=== PATIENT | male | born 1935 | race Caucasian/White ===

== ENCOUNTER 2018-11-06 13:43 | Observation (INO) ==
[2018-11-06] MEDS ORDERED: ASPIRIN CHEW 324 MG PO STA (14:12)
[2018-11-06 14:41] LABS: HCO3 VBG 26 mmol/L; Oxygen Saturation VBG < 60.0 %; PCO2 VBG 45 mmHg (38-50); PO2 VBG 23 mmHg; pH VBG 7.39 (7.36-7.41)
[2018-11-06 14:42] LABS: Basophils # (auto) 0.07 K/uL (0-0.2); Basophils % (auto) 0.7 %; Eosinophils # (auto) 0.06 K/uL (0-0.5); Eosinophils % (auto) 0.6 %; Hematocrit (blood only) 41.2 % (42-52); Hemoglobin 14.1 g/dL (14.0-18.0); Immature Granulocytes # (auto) 0.01 K/uL (0.00-0.02); Immature Granulocytes % (auto) 0.1 %; Lymphocytes # (auto) 1.47 K/uL (1.2-3.4); Lymphocytes % (auto) 15.5 %; Mean Corpuscular Hgb Conc 34.2 g/dL (32-36); Mean Corpuscular Volume 90.4 fL (80-100); Monocytes # (auto) 0.65 K/uL (0.11-0.59); Monocytes % (auto) 6.9 %; Neutrophils # (auto) 7.21 K/uL (1.4-6.5); Neutrophils % (auto) 76.2 %; Platelet Count 150 K/uL (130-400); RDW Coefficient of Variation 14.1 % (11.5-14.5); RDW Standard Deviation 46.2 fL (36.4-46.3); Red Blood Count 4.56 M/uL (4.7-6.1); White Blood Count 9.47 K/uL (4.8-10.8)
[2018-11-06] MEDS: SODIUM CHLORIDE 0.9% 500 ML IV SCH ×2 (14:51→18:24)
[2018-11-06] MEDS ORDERED: DIPHTHERIA/TETANUS/PERTUSSIS 0.5 ML SYR/VIAL IM ONE (14:53)
--- NOTE | 2018-11-06 14:53 | XRay Report ---
XR shoulder RT min 2V routine CLINICAL HISTORY: fall pain COMPARISON: None. DISCUSSION: Moderate degenerative change glenohumeral and acromioclavicular joints. No acute process. There is no evidence for soft tissue swelling. IMPRESSION: Moderate degenerative change. No acute process. The above report was generated using voice recognition software. It may contain grammatical, syntax or spelling errors. Electronically signed by: Ryan De Santiago M.D. 11/06/2018 2:52 PM
--- NOTE | 2018-11-06 14:53 | XRay Report ---
XR chest 1V portable CLINICAL HISTORY: Chest Pain pain COMPARISON STUDY: 08/28/2018 FINDINGS: The bones soft tissues and hemidiaphragms are normal. The cardiomediastinal silhouette is n ormal. The lungs are clear. The pulmonary vasculature is normal. IMPRESSION: Negative chest. The above report was generated using voice recognition software. It may contain grammatical, syntax or spelling errors. Electronically signed by: Ryan De Santiago M.D. 11/06/2018 2:51 PM
--- NOTE | 2018-11-06 14:55 | XRay Report ---
XR elbow RT min 3V routine CLINICAL HISTORY: fall COMPARISON: None. DISCUSSION: The bones and joint spaces appear intact. There is no evidence of fracture, dislocation o r bony disease. Mild degenerative change. No acute posttraumatic abnormality. IMPRESSION: Mild degenerative change. No acute process. The above report was generated using voice recognition software. It may contain grammatical, syntax or spelling errors. Electronically signed by: Ryan De Santiago M.D. 11/06/2018 2:54 PM
[2018-11-06 14:58] LABS: Partial Thromboplastin Ratio 0.9; Partial Thromboplastin Time 23.6 Seconds (21.0-31.0); Prothrombin Time 10.6 Seconds (9.0-12.0)
[2018-11-06 15:00] LABS: BUN Creatinine Ratio 25.3 (10-20); Calcium 9.8 mg/dl (8.5-10.1); Creatinine Clr Calc Pharmacy 35.5 ml/min; Est GFR (African American) 83.5; Potassium 4.3 mmol/L (3.5-5.1)
[2018-11-06 15:14] LABS: Troponin I 0.111 ng/ml (0-0.045)
[2018-11-06] MEDS ORDERED: OPTIRAY 320 125ml IV PRN (15:50)
--- NOTE | 2018-11-06 15:54 | CT Scan Report ---
CT head/brain wo con CT DOSE: 537.48 mGy.cm HISTORY: Mental status change syncope TECHNIQUE: Multiaxial CT images of the head were performed without the use of intravenous contrast. A dose lowering technique was utilized adhering to the principles of ALARA. Comparison: 03/30/2007. PET scan Findings: The paranasal sinuses and mastoid air cells are clear. The right globe is calcified. Modera te frontal atrophy. Components of chronic small vessel change throughout. 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 No acute intracranial hemorrhage. Impression: Chronic and age-related change. 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 No acute process. The above report was generated using voice recognition software. It may contain grammatical, syntax or spelling errors. Electronically signed by: Ryan De Santiago M.D. 11/06/2018 3:53 PM
--- NOTE | 2018-11-06 15:58 | CT Scan Report ---
CT angio chest PE protocol CT DOSE: 212.15 mGy.cm HISTORY: Chest pain Chest Pain, eval for PE TECHNIQUE: Multiaxial CT images of the chest were performed following the intravenous administration of contrast to evaluate the pulmonary arteries. Maximal intensity projection images were also obtaine d. A dose lowering technique was utilized adhering to the principles of ALARA. COMPARISON STUDY: 03/06/2018 FINDINGS: There is a normal caliber thoracic aorta with no evidence for dissection. There is no evide nce for pulmonary embolus. No pleural effusions. No pneumothorax. The liver and spleen are unremarkab le. No mediastinal or hilar lymphadenopathy. The central airways are patent. The lungs are clear. Emp hysematous changes noted throughout. Atherosclerotic change thoracic aorta. IMPRESSION: 1. No evidence for pulmonary embolus. 2. Emphysematous change. 3. The lungs are clear. The above report was generated using voice recognition software. It may contain grammatical, syntax or spelling errors. Electronically signed by: Ryan De Santiago M.D. 11/06/2018 3:57 PM
--- NOTE | 2018-11-06 17:42 | History & Physical Report ---
Date of Service November 06, 2018 Assessment & Plan (1) Syncope: This is a 83-year-old male with a PMH of CAD (s/p stents), carotid stenosis (s/p L endarterectomy, R carotid stenting), PVD (s/p L fem-pop bypass), laryngeal cancer (s/p resection and XRT), continued tobacco use, HTN and HLD who presents after syncopal episode this afternoon. -Likely postural hypotension in setting of dehydration -Also considering cardiac/vascular etiology, considering patient's longstanding CAD, carotid stenosis, tobacco use -IV fluids, orthostatic vitals, 2D echo -Fall precautions (2) Elevated troponin: Troponin elevation of 0.111 -H/o complex CAD including previous CABG and stents -No chest pain or EKG changes today (chronic LBBB already noted in Jul 2018) -Troponin elevation noted during Jul 2018 admission, during which patient left AMA -Saw Dr. Crain in Aug 2018, stated that he was not interest in further intervention, such as stress test or cardiac cath -ED physician discussed with Dr. Lopez. No need to start IV heparin at this time. 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 Crain, who recommended against elective procedure given the high likelihood of perioperative mortality DVT Ppx: SQ heparin Code status: DNR per discussion with patient PCP: Britt Andrews Dispo: Observation med tele. Plan to return home once medically stable. Patient seen in collaboration with Dr. Perez. Please see addendum. History of Present Illness Chief Complaint: Syncopal episode Primary Care Provider: Lissett Andrews This is a 83-year-old male with a PMH of CAD (s/p stents), carotid stenosis (s/p L endarterectomy, R carotid stenting), PVD (s/p L fem-pop bypass), laryngeal cancer (s/p resection and XRT), continued tobacco use, HTN and HLD who presents after syncopal episode this afternoon. Patient was returning from overnight drive from [place] with family when he stopped at a gas station and was walking beside car when he had a syncopal event. Patient denies any preceding lightheadedness, dizziness, chest pain or shortness of breath but just "fell to the ground "and was helped up by and daughter. Endorses bumping the back of his head. States that this happened to him once before, 4 years ago. Patient had been drinking primarily coffee and not much water overnight. Also endorses chain-smoking 5 cigarettes prior to syncopal event. Has tenderness in the right shoulder and forearm. Denies any fever, chills, lightheadedness, conf usion, chest pain, palpitations, shortness of breath, nausea, vomiting, abdominal pain, dysuria, diarrhea, or constipation. Patient has complex cardiac and vascular history and was not following with cardiology service between 2011 and August of this year. Was seen by Dr. Crain in clinic in August 2018 after being admitted at [facility] for chest pain and leaving AMA. Discussed further workup with stress test and possible cardiac catheterization but patient is not interested in any further testing. Was started on Imdur, which patient states he has been compliant with. Patient has troponin elevation of 0.111 as well as EKG with LAD, LBBB (previously noted on Jul 2018 EKG). Head CT, CXR and CTA chest without acute findings. Allergies Allergy/AdvReac Type Severity Reaction Status Date / Time Sulfa (Sulfonamide Allergy Unknown HIVES Verified 08/28/18 10:28 Antibiotics) codeine AdvReac Mild MENTAL Verified 08/28/18 10:28 STATUS CHANGE morphine AdvReac Unknown CHANGE IN Verified 08/28/18 10:28 MENTAL STATUS Home Medications Home Medications Medication Instructions Recorded Confirmed Type amitriptyline 25 mg PO HS 11/06/18 11/06/18 History aspirin 81 mg PO DAILY 11/06/18 11/06/18 History isosorbide mononitrate 30 mg PO HS 11/06/18 11/06/18 History lisinopril 5 mg PO HS 11/06/18 11/06/18 History nitroglycerin [Nitrostat] 0.4 mg SUBLINGUAL UD 11/06/18 11/06/18 History simvastatin 40 mg PO HS 11/06/18 11/06/18 History Past Med/Surg History Medical History History of CVA (cerebrovascular accident) (Chronic) mild residual hemiplegia and hemiparesis, left Carotid stenosis (Chronic) s/p L endarterectomy, R stenting "years ago" History of laryngeal cancer (Resolved) s/p resection and radiation History of prostate cancer (Resolved) Peripheral vascular disease (Chronic) Tobacco use (Chronic) Insomnia (Chronic) HTN (hypertension) (Chronic) Carotid stenosis (Chronic) Pulmonary emphysema (Chronic) Hypothyroidism (Chronic) Surgical History Status post femoral-popliteal bypass surgery (Resolved) left Hx of CABG (Chronic) 1993, 2002 Hx of heart artery stent (Chronic) Social History Preferred Language: Hebrew Communication Ability: Effective Housekeeping Associate Required: No Beliefs That Will Affect Care: None Current Living Situation: Spouse Other Information That Helps Us Care for You: No Feels Safe at Home: Yes Safety Concerns: Feels Safe At This Time Smoking Status: Current every day smoker Hx Alcohol Use: No Hx Substance Use: No Review of Systems All systems reviewed & are unremarkable except as noted in HPI & below Physical Exam Vital Signs (Past 24 Hours): Last Vital Signs Temp 36.4 C L 11/06/18 13:51 Pulse 96 H 11/06/18 16:29 Resp 20 11/06/18 16:29 BP 163/92 H 11/06/18 16:29 Pulse Ox 97 11/06/18 15:06 Physical Exam: General Appearance: WD/WN, no apparent distress, thin, chronically ill appearing Head: normocephalic, atraumatic Eyes: normal inspection, R eye artificial, PERRL, EOMI ENT: hearing grossly normal, pharynx normal (dry mucous membranes) Neck: supple, no JVD, no adenopathy Respiratory/Chest: lungs clear to auscultation. No wheezes, rales or rhonci. No respiratory distress or accessory muscle use Cardiovascular: regular rate, rhythm, systolic murmur, normal peripheral pulses Abdomen/GI: normal bowel sounds, soft, non-tender to palpation Extremities/Musculoskelatal: normal inspection, no calf tenderness, normal capillary refill, no pedal edema Neurologic/Psych: alert, normal mood/affect, oriented x 3 Skin: normal color, warm/dry Results & Data Laboratory Results Short CBC 11/06/18 Range/Units 14:16 WBC 9.47 (4.8-10.8) K/uL Hgb 14.1 (14.0-18.0) g/dL Hct 41.2 L (42-52) % Plt Count 150 (130-400) K/uL BMP 11/06/18 14:16 Sodium 136 Potassium 4.3 Chloride 102 Carbon Dioxide 26 BUN 25 H Creatinine 0.98 Glucose 113 H Calcium 9.8 Cardiac Enzymes 11/06/18 Range/Units 14:16 Troponin I 0.111 H* (0-0.045) ng/ml Diagnostic Findings CT head: Impression: Chronic and age-related change. 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 No acute process. Elbow XR: IMPRESSION: Mild degenerative change. No acute process. Shoulder XR: IMPRESSION: Moderate degenerative change. No acute process. CXR: IMPRESSION: Negative chest. Chest CTA: IMPRESSION: 1. No evidence for pulmonary embolus. 2. Emphysematous change. 3. The lungs are clear. Supervising Physician Co-Signing Physician Notes The patient was seen and examined in ER This is a 83-year-old male with a PMH of CAD (s/p stents), carotid stenosis (s/p L endarterectomy, R carotid stenting), PVD (s/p L fem-pop bypass), laryngeal cancer (s/p resection and XRT), continued tobacco use, HTN and HLD who presents after syncopal episode this afternoon following overnight drive from [place] to [employer] when he tried to come out of his car in a gas station,he felt dizzy and collapsed. Denies any symptoms in the emergency room On examination No apparent distress at rest Hemodynamically stable Chest-decreased breath sounds both sites with minimal wheezing Heart-S1-S2 regular with a 2/6 ejection systolic murmur over precordium Abdomen-benign Extremities-no edema and peripheral pulses well palpable EMBEDDED SOFTWARE PROGRAMMER-alert, awake and oriented x3. No focal sensory and motor deficit appreciated Admission labs, EKG and imaging studies reviewed Troponin mildly elevated to rule out ACS Likely has postural hypotension/cardiac dysrhythmias Agree with assessment and plan as outlined above by Jessica Perez (1) Syncope Syncope type: unspecified Qualified Code(s): R55 - Syncope and collapse
[2018-11-06] MEDS ORDERED: POLYETHYLENE (MIRALAX) 17 GM PACK PO PRN (18:22)
[2018-11-06] MEDS ORDERED: NITROGLYCERIN SL 0.4 MG/TAB TAB SL PRN (18:22)
[2018-11-06] MEDS ORDERED: ACETAMINOPHEN 325 MG TAB PO PRN (18:22)
--- NOTE | 2018-11-06 18:49 | Emergency Department Note ---
Entered by Emiliano Nam acting as a scribe for Jose Jain History of Present Illness General Chief complaint: Syncope Stated complaint: PASSED OUT TWICE Time Seen by Provider: 11/06/18 14:03 Source: patient Mode of arrival: ambulatory History of Present Illness Provider complaint: Syncope Onset (ago): hour(s) 2 Location: head Radiation: back Maximum Pain Intensity: 9 Current Pain Intensity: 9 Associated symptoms: no shortness of breath Patient is an 83 year old male who presents himself to ER with complains of passing out today at 1pm. He was on his way from [place] and stopped in nearby [place] for a cigarette break. Upon smoking his cigarette he started feeling dizzy and passed out. Patient also notes his pain at a rating of 9 on the pain intensity scale and the pain radiates slightly to his back. He states he does have a history of a cardiac stent and CABG. He states denying blood in urine, stool, abdominal pain, kidney problems, and shortness of breath. He also notes being on no blood thinners. Home Medications Home Medications Medication Instructions Recorded Confirmed Type amitriptyline 25 mg PO HS 11/06/18 11/06/18 History aspirin 81 mg PO DAILY 11/06/18 11/06/18 History isosorbide mononitrate 30 mg PO HS 11/06/18 11/06/18 History lisinopril 5 mg PO HS 11/06/18 11/06/18 History nitroglycerin [Nitrostat] 0.4 mg SUBLINGUAL UD 11/06/18 11/06/18 History simvastatin 40 mg PO HS 11/06/18 11/06/18 History Allergies Allergy/AdvReac Type Severity Reaction Status Date / Time Sulfa (Sulfonamide Allergy Unknown HIVES Verified 08/28/18 10:28 Antibiotics) codeine AdvReac Mild MENTAL Verified 08/28/18 10:28 STATUS CHANGE morphine AdvReac Unknown CHANGE IN Verified 08/28/18 10:28 MENTAL STATUS Past Med/Surg History Surgical History Hx of CABG (Acute) Hx of heart artery stent Social History Preferred Language: Tam[place] Communication Ability: Effective Clinical Informatics Specialist Required: No Beliefs That Will Affect Care: None Current Living Situation: Spouse Other Information That Helps Us Care for You: No Feels Safe at Home: Yes Safety Concerns: Feels Safe At This Time Smoking Status: Current every day smoker Hx Alcohol Use: No Hx Substance Use: No Review of Systems See HPI for pertinent positives & negatives. and A total of 10 systems reviewed and were otherwise negative Physical Exam Vital Signs Vital Signs - 24 hr 11/06/18 13:51 11/06/18 14:41 11/06/18 15:06 Temperature 36.4 C L Temperature Source Oral Sepsis Recent Fever Within 48 Hours No Sepsis New/Unexplained Change in Mental Status No Sepsis Action Taken by Nursing No Action Required Pulse Rate 108 H 108 H Pulse Rate [Apical] 94 H Pulse Rate [Left Finger] Pulse Rhythm [Apical] Pulse Strength [Apical] Respiratory Rate 22 20 20 Respiratory Effort / Characteristics Non-Labored Respiratory Depth Normal Respiratory Pattern Blood Pressure 177/94 H Blood Pressure [Left Arm] 156/129 H Blood Pressure Mean 121 Blood Pressure Mean [Left Arm] 138 Blood Pressure Position [Left Arm] Pulse Oximetry 97 97 Pulse Oximetry [Left Index Finger] Oxygen Delivery Method Room Air Room Air Oxygen Delivery Method [Left Index Finger] 11/06/18 16:29 11/06/18 17:42 11/06/18 18:00 Temperature Temperature Source Sepsis Recent Fever Within 48 Hours Sepsis New/Unexplained Change in Mental Status Sepsis Action Taken by Nursing Pulse Rate Pulse Rate [Apical] 96 H 84 Pulse Rate [Left Finger] Pulse Rhythm [Apical] Regular Regular Pulse Strength [Apical] Normal Respiratory Rate 20 20 Respiratory Effort / Characteristics Non-Labored Spontaneous Non-Labored Spontaneous Non-Labored Spontaneous Respiratory Depth Normal Normal Normal Respiratory Pattern Regular Regular Blood Pressure Blood Pressure [Left Arm] 163/92 H 151/82 H Blood Pressure Mean Blood Pressure Mean [Left Arm] 115 105 Blood Pressure Position [Left Arm] Lying Pulse Oximetry 98 Pulse Oximetry [Left Index Finger] Oxygen Delivery Method Room Air Room Air Oxygen Delivery Method [Left Index Finger] 11/06/18 18:14 11/06/18 18:42 11/06/18 18:43 Temperature 36.4 C L Temperature Source Oral Sepsis Recent Fever Within 48 Hours Sepsis New/Unexplained Change in Mental Status Sepsis Action Taken by Nursing Pulse Rate 84 Pulse Rate [Apical] Pulse Rate [Left Finger] 69 Pulse Rhythm [Apical] Pulse Strength [Apical] Respiratory Rate 20 18 Respiratory Effort / Characteristics Non-Labored Spontaneous Respiratory Depth Normal Respiratory Pattern Regular Blood Pressure 151/82 H Blood Pressure [Left Arm] 162/98 H Blood Pressure Mean Blood Pressure Mean [Left Arm] 119 Blood Pressure Position [Left Arm] Sitting Pulse Oximetry 98 93 Pulse Oximetry [Left Index Finger] 93 Oxygen Delivery Method Room Air Room Air Oxygen Delivery Method [Left Index Finger] Room Air GENERAL: He is oriented to person, place, and time. He does not appear distressed. Appears Cachectic. HENT: Exam performed. - Head: Normocephalic and atraumatic. - Right Ear: External ear normal. No mastoid tenderness. - Left Ear: External ear normal. No mastoid tenderness. - Mouth/Throat: The oropharynx is clear and moist. No trismus in the jaw. No dental abscesses or uvula swelling. No oropharyngeal exudate or tonsillar abscesses. EYES: Conjunctivae and EOM are normal. Pupils are equal, round, and reactive to light. Right eye is false eye, with discharge. Left eye exhibits no discharge. No scleral icterus. NECK: Normal range of motion. Neck supple. No JVD present. No spinous process tenderness present. No carotid bruit present. No rigidity. No tracheal deviation and normal range of motion present. No Brudzinski's sign and no Kernig's sign noted. CV: Normal rate, regular rhythm, normal heart sounds and intact distal pulses. There is no peripheral edema. Palpable radial pulses bue. PULM/CHEST: Effort normal and breath sounds normal. No respiratory distress. No stridor. He has no wheezes. He has no rales. - Chest Wall: He exhibits no tenderness. ABD: The abdomen is soft. Bowel sounds are normal. He has no distension. No mass is present. There is no tenderness. There is no rebound, no guarding, no Macias's sign and no tenderness at McBurney's point. Rovsig negative. MUSC/SKEL: Pain with active ROM of right shoulder and elbow. There is no peripheral edema, tenderness or deformity. LYMPH: No cervical adenopathy. NEURO: He is alert and oriented to person, place, and time. He has normal strength. No cranial nerve deficit or sensory deficit. Coordination and gait normal. GCS eye subscore is 4. GCS verbal subscore is 5. GCS motor subscore is 6. Cerebellar tests wnl. SKIN: Skin is warm and dry. He is not diaphoretic. Skin abrasion over right elbow. PSYCH: He has a normal mood and affect. Behavior is normal. Judgment and thought content normal. Course 1405: Past medical records reviewed. The patient was evaluated in room A04B, and a complete history and physical examination were performed. 1605: The patient's imaging results are within normal limits. I noted his labs showing elevated troponin levels and that his kidney function was normal. I spoke with , Cardiology and he states that no heparin at this time, he recommends trending the troponin. 1617: The patient will be admitted under the care of Dr. Perez, Hospitalist, [place] upon discussion with [place] Sheehan PA-C. Administered Medications Discontinued Medications Aspirin (Aspirin) 324 mg PO NOW STA Stop: 11/06/18 14:13 Last Admin: 11/06/18 14:55 Dose: 324 mg Documented by: [id number] Diphtheria/Pertussis/Tetanus Vacc (Adacel) 0.5 ml IM .ONCE ONE Stop: 11/06/18 14:54 Last Admin: 11/06/18 15:22 Dose: 0.5 ml Documented by: [id number] Sodium Chloride (Nss) 500 mls @ 125 mls/hr IV .Q4H VIC Stop: 12/06/18 14:14 Last Admin: 11/06/18 18:24 Dose: Not Given Documented by: [id number] Infusion: 11/06/18 18:17 Dose: 0 mls/hr Documented by: [id number] Admin: 11/06/18 14:51 Dose: 125 mls/hr Documented by: [id number] Ioversol (Optiray 320 125ml) 98 ml IV ONCE PRN PRN Reason: Interaction Checking Stop: 11/10/18 15:49 Last Admin: 11/06/18 15:50 Dose: 98 ml Documented by: [id number] Medical Decision Making Medical Records Attestation: I reviewed the patient's medical records. Home Medications Current Medication List: was personally reviewed by me Laboratory Data Attestation: I reviewed the patient's lab results. Result diagrams: 11/06/18 14:16 11/06/18 14:16 Lab Results 11/06/18 11/06/18 11/06/18 Range/Units 14:16 14:16 14:16 WBC 9.47 (4.8-10.8) K/uL RBC 4.56 L (4.7-6.1) M/uL Hgb 14.1 (14.0-18.0) g/dL Hct 41.2 L (42-52) % MCV 90.4 (80-100) fL MCH 30.9 (25-34) pg MCHC 34.2 (32-36) g/dL RDW Std Deviation 46.2 (36.4-46.3) fL RDW Coeff of Palu 14.1 (11.5-14.5) % Plt Count 150 (130-400) K/uL MPV 11.0 H (7.4-10.4) fL Immature Gran % (Auto) 0.1 % Neut % (Auto) 76.2 % Lymph % (Auto) 15.5 % Kendall % (Auto) 6.9 % Eos % (Auto) 0.6 % Baso % (Auto) 0.7 % Immature Gran # (Auto) 0.01 (0.00-0.02) K/uL Neut # (Auto) 7.21 H (1.4-6.5) K/uL Lymph # (Auto) 1.47 (1.2-3.4) K/uL Kendall # (Auto) 0.65 H (0.11-0.59) K/uL Eos # (Auto) 0.06 (0-0.5) K/uL Baso # (Auto) 0.07 (0-0.2) K/uL PT 10.6 (9.0-12.0) Seconds INR 1.0 (0.9-1.1) APTT 23.6 (21.0-31.0) Seconds PTT Ratio 0.9 VBG pH (7.36-7.41) VBG pCO2 (38-50) mmHg VBG pO2 mmHg VBG HCO3 mmol/L VBG O2 Saturation % VBG Base Excess mEq/L Barometric Pressure mm/Hg Sodium 136 (136-145) mmol/L Potassium 4.3 (3.5-5.1) mmol/L Chloride 102 (98-107) mmol/L Carbon Dioxide 26 (21-32) mmol/L Anion Gap 8.0 (3-11) BUN 25 H (7-18) mg/dl Creatinine 0.98 (0.6-1.4) mg/dl Est Cr Clr Drug Dosing 35.5 ml/min Est GFR ( Amer) 83.5 Est GFR (Non-Af Amer) 72.0 BUN/Creatinine Ratio 25.3 H (10-20) Glucose 113 H (70-99) mg/dl Calcium 9.8 (8.5-10.1) mg/dl Troponin I 0.111 H* (0-0.045) ng/ml Lipase 171 (73-393) U/L 11/06/18 Range/Units 14:28 WBC (4.8-10.8) K/uL RBC (4.7-6.1) M/uL Hgb (14.0-18.0) g/dL Hct (42-52) % MCV (80-100) fL MCH (25-34) pg MCHC (32-36) g/dL RDW Std Deviation (36.4-46.3) fL RDW Coeff of Paul (11.5-14.5) % Plt Count (130-400) K/uL MPV (7.4-10.4) fL Immature Gran % (Auto) % Neut % (Auto) % Lymph % (Auto) % Kendall % (Auto) % Eos % (Auto) % Baso % (Auto) % Immature Gran # (Auto) (0.00-0.02) K/uL Neut # (Auto) (1.4-6.5) K/uL Lymph # (Auto) (1.2-3.4) K/uL Kendall # (Auto) (0.11-0.59) K/uL Eos # (Auto) (0-0.5) K/uL Baso # (Auto) (0-0.2) K/uL PT (9.0-12.0) Seconds INR (0.9-1.1) APTT (21.0-31.0) Seconds PTT Ratio VBG pH 7.39 (7.36-7.41) VBG pCO2 45 (38-50) mmHg VBG pO2 23 mmHg VBG HCO3 26 mmol/L VBG O2 Saturation < 60.0 % VBG Base Excess 1.0 mEq/L Barometric Pressure 727.0 mm/Hg Sodium (136-145) mmol/L Potassium (3.5-5.1) mmol/L Chloride (98-107) mmol/L Carbon Dioxide (21-32) mmol/L Anion Gap (3-11) BUN (7-18) mg/dl Creatinine (0.6-1.4) mg/dl Est Cr Clr Drug Dosing ml/min Est GFR ( Amer) Est GFR (Non-Af Amer) BUN/Creatinine Ratio (10-20) Glucose (70-99) mg/dl Calcium (8.5-10.1) mg/dl Troponin I (0-0.045) ng/ml Lipase (73-393) U/L Imaging Data Attestation: I personally reviewed and interpreted this imaging study as follows: Radiologist's Impression: Radiology results as stated below per my review and the radiologist's interpretation: XR shoulder RT min 2V routine CLINICAL HISTORY: fall pain COMPARISON: None. DISCUSSION: Moderate degenerative change glenohumeral and acromioclavicular tay ints. No acute process. There is no evidence for soft tissue swelling. IMPRESSION: Moderate degenerative change. No acute process. The above report was generated using voice recognition software. It may contain grammatical, syntax or spelling errors. Electronically signed by: Ryan De Santiago M.D. 11/06/2018 2:[address] head/brain wo con CT DOSE: 537.48 mGy.cm HISTORY: Mental status change syncope TECHNIQUE: Multiaxial CT images of the head were performed without the use of intravenous contrast. A dose lowering technique was utilized adhering to the principles of ALARA. Comparison: 03/30/2007. PET scan Findings: The paranasal sinuses and mastoid air cells are clear. The right globe is calcified. Moderate frontal atrophy. Components of chronic small vessel change throughout. 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 No acute intracranial hemorrhage. Impression: Chronic and age-related change. 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 No acute process. The above report was generated using voice recognition software. It may contain grammatical, syntax or spelling errors. Electronically signed by: Ryna De Santiago M.D. 11/06/2018 3:53 PM Dictated: 11/06/18 1550 Transcribed: 11/06/18 1550 XR elbow RT min 3V routine CLINICAL HISTORY: fall COMPARISON: None. DISCUSSION: The bones and joint spaces appear intact. There is no evidence of fracture, dislocation or bony disease. Mild degenerative change. No acute posttraumatic abnormality. IMPRESSION: Mild degenerative change. No acute process. The above report was generated using voice recognition software. It may contain grammatical, syntax or spelling errors. Electronically signed by: Ryan De Santiago M.D. 11/06/2018 2:[address] angio chest PE protocol CT DOSE: 212.15 mGy.cm HISTORY: Chest pain Chest Pain, eval for PE TECHNIQUE: Multiaxial CT images of the chest were performed following the intravenous administration of contrast to evaluate the pulmonary arteries. Maximal intensity projection images were also obtained. A dose lowering technique was utilized adhering to the principles of ALARA. COMPARISON STUDY: 03/06/2018 FINDINGS: There is a normal caliber thoracic aorta with no evidence for dissection. There is no evidence for pulmonary embolus. No pleural effusions. No pneumothorax. The liver and spleen are unremarkable. No mediastinal or hilar lymphadenopathy. The central airways are patent. The lungs are clear. Emphysem atous changes noted throughout. Atherosclerotic change thoracic aorta. IMPRESSION: 1. No evidence for pulmonary embolus. 2. Emphysematous change. 3. The lungs are clear. The above report was generated using voice recognition software. It may contain grammatical, syntax or spelling errors. Electronically signed by: Ryan De Santiago M.D. 11/06/2018 3:57 PM XR chest 1V portable CLINICAL HISTORY: Chest Pain pain COMPARISON STUDY: 08/28/2018 FINDINGS: The bones soft tissues and hemidiaphragms are normal. The cardiomediastinal silhouette is normal. The lungs are clear. The pulmonary vasculature is normal. IMPRESSION: Negative chest. The above report was generated using voice recognition software. It may contain grammatical, syntax or spelling errors. Electronically signed by: Ryan De Santiago M.D. 11/06/2018 2:51 PM ECG Data Attestation: I personally reviewed and interpreted this ECG as follows: Indication: syncope Rate (beats per minute): 92 Rhythm: normal sinus Findings: + other (Pr interval- 208 Qrs - 124 Qtc- 489 , Sgarbosa negative ) and + 1st degree AV block Blood Pressure Blood Pressure Findings: Elevated blood pressure Blood Pressure Disposition: Referred to patients primary care provider MENA Anderson 1405: Past medical records reviewed. The patient was evaluated in room A04B, and a complete history and physical examination were performed. 1605: The patient's imaging results are within normal limits. I noted his labs showing elevated troponin levels and that his kidney function was normal. I spoke with , Cardiology and he states that no heparin at this time, he recommends trending the troponin. 1617: The patient will be admitted under the care of Dr. Perez, Hospitalist, [place] upon discussion with Keya Sheehan PA-C. Impression & Plan Syncope, Elevated troponin Discharge Plan Visit Data Chief Complaint: Syncope Stated Complaint: PASSED OUT TWICE ED Provider: Jose Jain Discharge Problem: Syncope, Elevated troponin Patient Disposition: Admitted As Inpatient Discharge Instructions Interventions: ED Discharge Assessment Last Done: 11/06/18 18:14 Discharge Problem: Syncope Qualifiers: Syncope type: unspecified Qualified Code(s): R55 - Syncope and collapse The scribe's documentation has been prepared under my direction and personally reviewed by me in its entirety. I confirm that the note above accurately reflects all work, treatment, procedures, and medical decision making performed by me.
[2018-11-06] MEDS: SODIUM CHLORIDE 0.9% 1000ML 1,000 ML IV SCH (20:00)
[2018-11-06] MEDS ORDERED: AMITRIPTYLINE HCL 25 MG TAB PO SCH (21:00)
[2018-11-06] MEDS ORDERED: ISOSORBIDE MONO EXTENDED REL 30 MG TABCR PO SCH (21:00)
[2018-11-06] MEDS ORDERED: LISINOPRIL 5 MG TAB PO SCH (21:00)
[2018-11-06] MEDS ORDERED: SIMVASTATIN 40 MG TAB PO SCH (21:00)
[2018-11-06] MEDS ORDERED: METOPROLOL TARTRATE 1 MG/ML VIAL IV STA (21:15)
[2018-11-06] MEDS: HEPARIN SOD 5,000 UNIT/0.5 ML VIAL SQ SCH (21:18)
[2018-11-07] MEDS ORDERED: KETOROLAC TROMETHAMINE 15 MG/ML VIAL IV ONE (02:23)
[2018-11-07 02:38] LABS: BUN Creatinine Ratio 25.2 (10-20); Calcium 8.1 mg/dl (8.5-10.1); Creatinine Clr Calc Pharmacy 32.8 ml/min; Est GFR (African American) 75.9; Est GFR (Non-African American) 65.5; Potassium 4.2 mmol/L (3.5-5.1)
[2018-11-07 02:43] LABS: Troponin I 0.34 ng/ml (0-0.045)
[2018-11-07] MEDS: SODIUM CHLORIDE 0.9% 1000ML 1,000 ML IV SCH (04:58)
[2018-11-07 07:36] LABS: Hematocrit (blood only) 36.7 % (42-52); Hemoglobin 12.1 g/dL (14.0-18.0); Mean Corpuscular Volume 90.4 fL (80-100); Mean Platelet Volume 10.9 fL (7.4-10.4); Platelet Count 140 K/uL (130-400); RDW Coefficient of Variation 14.3 % (11.5-14.5); RDW Standard Deviation 47.1 fL (36.4-46.3); Red Blood Count 4.06 M/uL (4.7-6.1); White Blood Count 6.48 K/uL (4.8-10.8)
[2018-11-07] MEDS: HEPARIN SOD 5,000 UNIT/0.5 ML VIAL SQ SCH (07:54)
[2018-11-07] MEDS ORDERED: ASPIRIN 81 MG ECTAB PO SCH (09:00)
--- NOTE | 2018-11-07 09:55 | Consultation Report ---
DATE OF ADMISSION: 11/07/2018 CONSULTATION REQUESTED BY: Jessica Lancaster PA-C REASON FOR CONSULTATION: Syncope. HISTORY OF PRESENT ILLNESS: Mr. Epperson is a very medically complex and medically nonadherent 83-year-old gentleman who recently established with me as an outpatient in August after being lost to follow up for several years. He presented to [facility] Emergency Department after reported syncopal event. The patient just got out of the car after driving to a total of 24 hours back from [place] without stopping. Again, he states he was in a car for 24 hours and during that time had nothing to eat or drink but coffee and occasional Pepsi. He has had no other liquids and has not any water in quite some time when he stopped at a gas station, he got up stood up out of the car, walked around the front and when he got to the front of the vehicle, he syncopized. He denied any prior prodromal events and denies experiencing any chest pain, shortness of breath, palpitations, lightheadedness or dizziness. He states he just passed out. He said when he woke up, he felt fine. He was only out for a few seconds and he wanted to continue on his way, but his family insisted that he go to the Emergency Room. In the Emergency Room, he was found to be a little prerenal otherwise unremarkable. He was admitted to telemetry and started on IV fluids. Troponin was minimally elevated, but again the patient was asymptomatic from a cardiac standpoint. PAST SURGICAL HISTORY: 1. Most recent cardiac catheterization in 2011 showing severe [place] vessel triple disease with a patent LIU to the LAD and occluded vein graft to the RCA. 2. Left carotid endarterectomy. 3. Right carotid artery stenting. 4. CABG x2 with a LIU to the LAD and vein graft to the RCA/PDA. 5. PCI to the LAD with a bare metal stent. 6. Left femoral popliteal bypass. 7. Laryngeal carcinoma resection. PAST MEDICAL ILLNESSES: 1. Complex coronary artery disease. 2. Severe peripheral vascular disease. 3. Tobacco abuse, ongoing. 4. COPD. 5. 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 6. Hypertension. 7. Hyperlipidemia. 8. Prostate cancer. 9. Hypothyroidism. 10. Medical noncompliance. FAMILY HISTORY: Noncontributory. SOCIAL HISTORY: The patient is a lifelong smoker and continues to smoke a pack a day. Denies any alcohol or recreational drug use. He drinks mainly Pepsi and coffee throughout the day, very little water lives at home with his . He is a retired digital printer operator. REVIEW OF SYSTEMS: As per HPI, all other review of systems reviewed and negative at this time. ALLERGIES: 1. MORPHINE. 2. SULFA. MEDICATIONS AN OUTPATIENT: 1. Imdur 30 mg daily. 2. Simvastatin 40 mg daily. 3. Lisinopril 5 mg daily. 4. Aspirin 81 mg daily, which he refuses to take. 5. Elavil daily. 6. Nitrostat p.r.n. 7. Levoxyl daily. PHYSICAL EXAMINATION: VITALS: Temperature 36.8, pulse 68, respiratory rate 12, blood pressure 113/57, saturating 95% on room air. GENERAL: Awake, alert, oriented x3 in no acute distress, cachectic and frail in appearance. HEENT: Normocephalic, atraumatic. Pupils equal, round and reactive to light and accommodation. Extraocular muscles intact. Anicteric sclerae. Moist mucous membranes. Poor dentition. NECK: No JVD with bilateral bruits. CARDIOVASCULAR: Regular but distant. Unable to appreciate murmurs, rubs or gallops. PULMONARY: Poor air movement diffusely. Unable to appreciate murmur rales, rhonchi or wheezing. ABDOMEN: Bowel sounds x4, soft. No rebound, guarding, tenderness. No organomegaly. EXTREMITIES: No clubbing, cyanosis or edema. +1 pedal pulses bilaterally. SKIN: Warm and dry. TEST RESULTS: EKG performed in the Emergency Department independently reviewed at this time shows unchanged compared to previous study. A 2D echocardiogram was read as normal LV chamber size with mild concentric LVH. Impression: 1. Severely-reduced LV systolic function with severe global hypokinesis, ejection fraction of 20-25%. 2. Grade 1 diastolic dysfunction. 3. Moderate aortic valve sclerosis without stenosis. IMPRESSION: 1. Syncope, likely secondary to orthostasis and a possible vasovagal combination 2. Complex coronary artery disease. 3. Severe peripheral arterial disease. 4. Carotid stenosis. 5. Ongoing tobacco abuse. 6. History of medical noncompliance. 7. Volume depletion. RECOMMENDATIONS: Mr. Epperson was counseled given the clinical context the fact he was sitting in a car after 24-hour ride and had nothing but caffeine and no other liquids to drink I believe is most likely orthostatic in nature with a possible vasovagal component added to it. At this point, I agree with continuing IV fluids, but we will only give him to finish the liter that he is on now. I have counseled him on his need to increase his oral hydration. Otherwise, in terms of his severe ischemic cardiomyopathy as previously discussed, the patient does not want any further workup done and no further intervention. The patient states "I'm 83. I've done enough. I don't want any more of tests." So no further workup will be discussed at this point. He was counseled on his high risk of sudden cardiac . The patient states he understands and is ready to go if that is the case. So no other medication changes will be made at this time. I will be okay to discharge the patient to home from a cardiac standpoint once his volume status has been repeated and his orthostatic vital signs have normalized. SHANNON
[2018-11-07 11:01] VITALS: TEMP 98.1
--- NOTE | 2018-11-07 12:04 | Hospitalist Progress Note ---
Date of Service November 07, 2018 Assessment & Plan (1) Syncope: This is a 83-year-old male with a PMH of CAD (s/p stents), carotid stenosis (s/p L endarterectomy, R carotid stenting), PVD (s/p L fem-pop bypass), laryngeal cancer (s/p resection and XRT), continued tobacco use, HTN and HLD who presents after syncopal episode this afternoon. -Likely postural hypotension in setting of dehydration -Also considering cardiac/vascular etiology, considering patient's longstanding CAD, carotid stenosis, tobacco use -Received IV fluid -Has orthostatic blood pressure and pulse changes -Wants to go home today -Advised to take precaution to avoid any further falls -Physical therapy before discharge (2) Elevated troponin: Troponin elevation of 0.111 -H/o complex CAD including previous CABG and stents -No chest pain or EKG changes today (chronic LBBB already noted in Jul 2018) -Troponin elevation noted during Jul 2018 admission, during which patient left AMA -Saw Dr. Crain in Aug 2018, stated that he was not interest in further intervention, such as stress test or cardiac cath -ED physician discussed with Dr. Lopez. No need to start IV heparin at this time. Will trend troponin -Trend troponin, monitor on telemetry -Troponin went up to 2.34 without any additional EKG changes -Echocardiogram showed normal LV cavity size, mild concentric left ventricular hypertrophy, severely decreased left ventricular function with EF of 20-25%, grade 1 diastolic dysfunction and moderate aortic stenosis -Appreciate cardiology input and recommendation -Continue current management (3) CAD (coronary artery disease): Continue aspirin, statin, Imdur (4) HTN (hypertension): Mildly elevated in setting of MSK pain from fall -Continue lisinopril, pain control (5) Peripheral vascular disease: Continue aspirin, statin (6) Hypothyroidism: Continue levothyroxine (7) History of CVA (cerebrovascular accident): Mild residual hemiplegia and hemiparesis, left -Continue aspirin, statin (8) History of laryngeal cancer: S/p resection and radiation (9) Insomnia: Continue amitriptyline (10) Abdominal wall hernia: Discussed elective surgery with Dr. Crain, who recommended against elective procedure given the high likelihood of perioperative mortality DVT Ppx: SQ heparin Code status: DNR per discussion with patient PCP: Britt Andrews Dispo: Observation med tele. Plan to return home once medically stable. Discussed about quitting smoking but the patient declined Will be discharged home this afternoon following PT evaluation Subjective This is a 83-year-old male with a PMH of CAD (s/p stents), carotid stenosis (s/p L endarterectomy, R carotid stenting), PVD (s/p L fem-pop bypass), laryngeal cancer (s/p resection and XRT), continued tobacco use, HTN and HLD who presents after syncopal episode this afternoon. 11/07 The patient was seen and examined in medical telemetry unit He denies any symptoms and wants to be discharged He has postural hypotension and that is a likely cause for his syncope He was advised to take appropriate measures to prevent fall Physical Exam Vital Signs (Past 24 Hours): Last Vital Signs Temp 36.7 C 11/07/18 11:00 Pulse 79 11/07/18 11:00 Resp 18 11/07/18 11:00 BP 146/68 H 11/07/18 11:00 Pulse Ox 99 11/07/18 11:00 Physical Exam: No apparent distress at rest Constitutional: WD/WN, vitals as above Eyes: PERRL, conjunctivae normal, anicteric sclerae ENMT: external ear and nose normal, oropharynx normal Neck: trachea midline, no thyromegaly Respiratory: normal respiratory effort; no respiratory distress Auscultation: + diminished lung sounds and + wheezes (Occasional wheezing) Cardiovascular: Rate/Rhythm: regular rate and regular rhythm Heart Sounds: normal S1, normal S2 and + murmur (2/6 ejection systolic murmur over precordium) Gastrointestinal (Abdomen): normal bowel sounds, soft, nontender, no hepatosplenomegaly Neurologic: PERRL, EOMI, accommodation nl, no face palsy, no dysarthria Results & Data Laboratory Results Short CBC 11/06/18 11/07/18 Range/Units 14:16 07:16 WBC 9.47 6.48 (4.8-10.8) K/uL Hgb 14.1 12.1 L (14.0-18.0) g/dL Hct 41.2 L 36.7 L (42-52) % Plt Count 150 140 (130-400) K/uL BMP 11/06/18 11/07/18 14:16 01:55 Sodium 136 140 Potassium 4.3 4.2 Chloride 102 109 H Carbon Dioxide 26 22 BUN 25 H 27 H Creatinine 0.98 1.06 Glucose 113 H 83 Calcium 9.8 8.1 L D Cardiac Enzymes 11/06/18 11/06/18 11/07/18 Range/Units 14:16 19:58 01:55 Troponin I 0.111 H* 0.351 H* 0.340 H* (0-0.045) ng/ml Medications Administered Current Inpatient Medications Acetaminophen (Tylenol) 650 mg PO Q4H PRN PRN Reason: Pain or Fever Stop: 12/06/18 18:21 Last Admin: 11/06/18 19:51 Dose: 650 mg Documented by: Amitriptyline HCl (Elavil) 25 mg PO [facility] Stop: 12/06/18 20:59 Last Admin: 11/06/18 21:18 Dose: 25 mg Documented by: Aspirin (Ecotrin Ectab) 81 mg PO DAILY [facility] Stop: 12/07/18 08:59 Last Admin: 11/07/18 07:54 Dose: 81 mg Documented by: Heparin Sodium (Porcine) (Heparin Sodium (Porcine)) 5,000 units SQ Q12 [facility] Stop: 12/06/18 20:59 Last Admin: 11/07/18 07:54 Dose: 5,000 units Documented by: Sodium Chloride (Nss 1000ml) 1,000 mls @ 100 mls/hr IV .Q10H [facility] Stop: 11/07/18 15:44 Last Admin: 11/07/18 04:58 Dose: 100 mls/hr Documented by: Isosorbide Mononitrate (Imdur Extended Rel) 30 mg PO [facility] Stop: 12/06/18 20:59 Last Admin: 11/06/18 21:20 Dose: 30 mg Documented by: Lisinopril (Zestril) 5 mg PO [facility] Stop: 12/06/18 20:59 Last Admin: 11/06/18 21:21 Dose: 5 mg Documented by: Nitroglycerin (Nitrostat) 0.4 mg SL UD PRN PRN Reason: chest pain Stop: 12/06/18 18:21 Polyethylene Glycol (Miralax Powder Packet) 17 gm PO DAILY PRN PRN Reason: Constipation Stop: 12/06/18 18:21 Simvastatin (Zocor) 40 mg PO [facility] Stop: 12/06/18 20:59 Last Admin: 11/06/18 21:20 Dose: 40 mg Documented by: (1) Syncope Syncope type: unspecified Qualified Code(s): R55 - Syncope and collapse
--- NOTE | 2018-11-07 12:16 | Cardiology Progress Note ---
Date of Service November 07, 2018 Assessment & Plan (1) DM2 (diabetes mellitus, type 2): BS improving will defer to primary team (2) CAD (coronary artery disease): some slight volume overload on presentation diuresed 3 L asymptomatic would d/c IV lasix now restart po AM Lasix would add po PM 40mg tablet every other day f/u as scheduled in outpatient clinic ok to d/c to home from cardiac standpoint Subjective Pt seen and examined with his at bedside. States that he feels well and glucose better controlled today. LE edema has resolved. Denies cp, sob, palpitations, lightheadedness or dizziness. Tele reviewed: v-paced with underlying afib, rate controlled Review of Systems All systems reviewed & are unremarkable except as noted in HPI & below Physical Exam Vital Signs (Past 24 Hours): Last Vital Signs Temp 36.7 C 11/07/18 11:00 Pulse 79 11/07/18 11:00 Resp 18 11/07/18 11:00 BP 146/68 H 11/07/18 11:00 Pulse Ox 99 11/07/18 11:00 Physical Exam: General: Awake, alert and oriented x 3. No acute distress. HEENT: Normocephalic, atraumatic. Pupils equal, round and reactive to light and accommodation. Extraocular muscles are intact. Anicteric sclera. Moist mucous membranes. Neck: No JVD. No bruit. Cardiovascular: irregularly irregular, unable to appreciate murmur, rub or gallop. Pulmonary: Clear to auscultation bilaterally. No rales, rhonchi, or wheezing. Abdomen: Bowel sounds x 4, soft. No rebound, guarding or tenderness. No organomegaly. Extremities: No clubbing, cyanosis or edema. +2 pedal pulses bilaterally. Skin: Warm and dry.
[2018-11-07 15:10] VITALS: BP 147/63; O2SAT 97
[2018-11-07 16:34] VITALS: PULSE 61
--- NOTE | 2018-11-08 07:58 | Discharge Summary ---
Date of Service November 08, 2018 Admission HPI Per Admitting Provider This is a 83-year-old male with a PMH of CAD (s/p stents), carotid stenosis (s/p L endarterectomy, R carotid stenting), PVD (s/p L fem-pop bypass), laryngeal cancer (s/p resection and XRT), continued tobacco use, HTN and HLD who presents after syncopal episode this afternoon. Patient was returning from overnight drive from [place] with family when he stopped at a gas station and was walking beside car when he had a syncopal event. Patient denies any preceding lightheadedness, dizziness, chest pain or shortness of breath but just "fell to the ground "and was helped up by and daughter. Endorses bumping the back of his head. States that this happened to him once before, 4 years ago. Patient had been drinking primarily coffee and not much water overnight. Also endorses chain-smoking 5 cigarettes prior to syncopal event. Has tenderness in the right shoulder and forearm. Denies any fever, chills, lightheadedness, confusion, chest pain, palpitations, shortness of breath, nausea, vomiting, abdominal pain, dysuria, diarrhea, or constipation. Patient has complex cardiac and vascular history and was not following with cardiology service between 2011 and August of this year. Was seen by Dr. Benny bernabe in clinic in August 2018 after being admitted at [facility] for chest pain and leaving AMA. Discussed further workup with stress test and possible cardiac catheterization but patient is not interested in any further testing. Was started on Imdur, which patient states he has been compliant with. Patient has troponin elevation of 0.111 as well as EKG with LAD, LBBB (previously noted on Jul 2018 EKG). Head CT, CXR and CTA chest without acute findings. Admission Exam Per Admitting Provider VITALS: Temperature 36.8, pulse 68, respiratory rate 12, blood pressure 113/57, saturating 95% on room air. GENERAL: Awake, alert, oriented x3 in no acute distress, cachectic and frail in appearance. HEENT: Normocephalic, atraumatic. Pupils equal, round and reactive to light and accommodation. Extraocular muscles intact. Anicteric sclerae. Moist mucous membranes. Poor dentition. NECK: No JVD with bilateral bruits. CARDIOVASCULAR: Regular but distant. Unable to appreciate murmurs, rubs or gallops. PULMONARY: Poor air movement diffusely. Unable to appreciate murmur rales, rhonchi or wheezing. ABDOMEN: Bowel sounds x4, soft. No rebound, guarding, tenderness. No organomegaly. EXTREMITIES: No clubbing, cyanosis or edema. +1 pedal pulses bilaterally. SKIN: Warm and dry. Principal Diagnosis Syncope likely secondary to vasovagal event, postural hypotension Discharge Exam Constitutional WD/WN, vitals as above Eyes PERRL, conjunctivae normal, anicteric sclerae ENMT external ear and nose normal, oropharynx normal Neck trachea midline, no thyromegaly Respiratory normal respiratory effort; no respiratory distress Auscultation: + diminished lung sounds and + wheezes (Occasional wheezing) Cardiovascular Rate/Rhythm: regular rate and regular rhythm Heart Sounds: normal S1, normal S2 and + murmur (2/6 ejection systolic murmur over precordium) Gastrointestinal (Abdomen) normal bowel sounds, soft, nontender, no hepatosplenomegaly Neurologic PERRL, EOMI, accommodation nl, no face palsy, no dysarthria Discharge Data Allergies Allergy/AdvReac Type Severity Reaction Status Date / Time Sulfa (Sulfonamide Allergy Unknown HIVES Verified 08/28/18 10:28 Antibiotics) codeine AdvReac Mild MENTAL Verified 08/28/18 10:28 STATUS CHANGE morphine AdvReac Unknown CHANGE IN Verified 08/28/18 10:28 MENTAL STATUS Consultations 11/06/18 16:18 ED Decision to Admit Stat 11/07/18 08:00 Consult Cardiology Routine Ordered Studies 11/06/18 14:13 CT angio chest PE protocol Stat CT head/brain wo con Stat Hospital Course (1) Syncope: This is a 83-year-old male with a PMH of CAD (s/p stents), carotid stenosis (s/p L endarterectomy, R carotid stenting), PVD (s/p L fem-pop bypass), laryngeal cancer (s/p resection and XRT), continued tobacco use, HTN and HLD who presents after syncopal episode this afternoon. -Likely postural hypotension in setting of dehydration -Also considering cardiac/vascular etiology, considering patient's longstanding CAD, carotid stenosis, tobacco use -Received IV fluid -Has orthostatic blood pressure and pulse changes -Wants to go home today -Advised to take precaution to avoid any further falls -Physical therapy before discharge (2) Elevated troponin: Troponin elevation of 0.111 -H/o complex CAD including previous CABG and stents -No chest pain or EKG changes today (chronic LBBB already noted in Jul 2018) -Troponin elevation noted during Jul 2018 admission, during which patient left AMA -Saw Dr. Crain in Aug 2018, stated that he was not interest in further intervention, such as stress test or cardiac cath -ED physician discussed with Dr. Lopez. No need to start IV heparin at this time. Will trend troponin -Trend troponin, monitor on telemetry -Troponin went up to 2.34 without any additional EKG changes -Echocardiogram showed normal LV cavity size, mild concentric left ventricular hypertrophy, severely decreased left ventricular function with EF of 20-25%, grade 1 diastolic dysfunction and moderate aortic stenosis -Appreciate cardiology input and recommendation -Continue current management (3) CAD (coronary artery disease): Continue aspirin, statin, Imdur (4) HTN (hypertension): Mildly elevated in setting of MSK pain from fall -Continue lisinopril, pain control (5) Peripheral vascular disease: Continue aspirin, statin (6) Hypothyroidism: Continue levothyroxine (7) History of CVA (cerebrovascular accident): Mild residual hemiplegia and hemiparesis, left -Continue aspirin, statin (8) History of laryngeal cancer: S/p resection and radiation (9) Insomnia: Continue amitriptyline (10) Abdominal wall hernia: Discussed elective surgery with Dr. Crain, who recommended against elective procedure given the high likelihood of perioperative mortality DVT Ppx: SQ heparin Code status: DNR per discussion with patient PCP: Britt Andrews Dispo: Observation med tele. Plan to return home once medically stable. Discussed about quitting smoking but the patient declined Will be discharged home this afternoon following PT evaluation Total Time Total Time Spent Total Time Spent (In Minutes): 35 minutes Total Time Includes: Examination of the Patient, Discharge Planning, Medication Reconciliation and Communication With Other Providers Discharge Plan Discharge Items Patient Disposition: Home - Self-Care Reason For Visit: SYNCOPE Discharge Diagnosis: Syncope likely secondary to vasovagal event, postural hypotension Condition: Good Discharge Goals: Decrease discomfort, Improve function and Increase independence Activity: Resume your previous activity Activity Comment: Please take precaution to avoid falls Non-emergency contact: Primary Care Provider Call non-emergency contact if: you have any medication questions and your symptoms worsen Follow-up/Referrals: Lissett Andrews DO [Primary Care Provider] - 11/09/18 10:45 am Diet: Heart Healthy and Low Sodium (2gm) Fluids: 1800ml (7 cups) Addtl Provider Instructions: Please take precaution to avoid fall Prescriptions: Continued amitriptyline 25 mg Tablet 25 mg PO HS RF: 0 isosorbide mononitrate 30 mg Tablet Extended Release 24 Hr 30 mg PO HS RF: 0 simvastatin 40 mg Tablet 40 mg PO HS RF: 0 nitroglycerin [Nitrostat] 0.4 mg Tablet, Sublingual 0.4 mg Sublingual UD RF: 0 lisinopril 5 mg Tablet 5 mg PO HS RF: 0 aspirin 81 mg Tablet,Delayed Release (Dr/Ec) 81 mg PO DAILY RF: 0 Stand-Alone Forms: [facility] Discharge Orders: Discharge Order (Routine); Ordered 11/07/18 Ordered By: Flor Perez Admission Data Admit Date/Time: 11/06/18 17:37 Attending Provider: Flor Perez Admit Provider: Flor Perez Primary Care Provider: Lissett Andrews Other Providers: Flor Perez ; Pipo Lopez Service: Telemetry Other Interventions: Discharge Summary Assessment (RN) Last Done: 11/07/18 15:40 DC Date/Time DO NOT enter until pt leaves facility: 11/07/18 16:39
== END 2018-11-07 16:39 | disposition home or self-care (01) ==
LOC: 2W 13:43 → ED 13:43 → 2W 18:14

== ENCOUNTER 2021-05-10 15:52 | Inpatient (IN) ==
--- NOTE | 2021-05-10 16:09 | Emergency Department Note ---
Impression & Plan Syncope, Elevated troponin, Abnormal EKG ED Provider Note FocalNAME: BRE GARCIA AGE: 85 SEX: M : 1935 ARRIVES VIA: Ambulance INFORMANT: Patient, ED PROVIDER(S): Bradley Esqueda DO CHIEF COMPLAINT: Syncope HPI: The patient is an 85-year-old male who presented to the emergency department for an evaluation after having a syncopal episode. The patient arrived via ambulance. At this time the patient does not have any complaints. He denies having any chest pain or difficulty breathing. He denies having any lower extremity swelling or pain. The patient is a tobacco user. The patient states he was walking across the room when he "passed out". He there was no reported seizure or postictal phase. The patient did not bite his tongue or lose bowel or bladder continence. The patient did not want to come the [facility] department but his family members asked him to present due to the episode of syncope. The patient arrived via ambulance. ROS: See above HPI for pertinent positives & negatives. A total of 10 systems reviewed and were otherwise negative. PAST MEDICAL HISTORY: See Below PAST SURGICAL HISTORY: See Below FAMILY HISTORY: See Below SOCIAL HISTORY: See Below HOME MEDICATIONS: See Below ALLERGIES: See Below VITALS: See Below PHYSICAL EXAMINATION: GENERAL: Patient is awake alert in no acute distress patient is resting comfortably and showing no signs of anxiety. The patient is somewhat frail appearing. EYES: The right eye is glass. The left eye is normal in appearance. The pupil is midsize and reactive. EARS, NOSE, MOUTH AND THROAT: The nose is without any evidence of any deformity. NECK: The neck is nontender and supple. RESPIRATORY: Normal respiratory effort is noted there is no evidence of wheezing rhonchi or rales CARDIOVASCULAR: Regular rate and rhythm noted there no murmurs rubs or gallops normal S1 normal S2. GASTROINTESTINAL: The abdomen is soft. Abdomen is nontender. MUSCULOSKELETAL/EXTREMITIES: There is no evidence of gross deformity full range of motion is noted in the hips and shoulders. SKIN: There is no obvious evidence of any rash. There are no petechiae, pallor or cyanosis noted. NEUROLOGIC: Patient is awake alert and oriented x3. Strength is symmetric. The patient is able to hold each leg off the bed for greater than 5 seconds. MEDICAL DECISION MAKING: The patient is an 85-year-old male who presented to the emergency department for an evaluation after having a syncopal episode at home. Neurologic deficits. He was found to have an abnormal EKG with a left bundle branch block. The patient's troponin was elevated. Given the patient's age and comorbidities I do feel the patient may require further work-up as an inpatient for the syncopal episode. Initially the patient did not wish to stay in the hospital but his significant other was very concerned about his wellbeing and requested that he stay in the hospital. For this reason I discussed his case with the on-call [facility] hospitalist. They have agreed to evaluate the patient in the emergency department. Triage Nursing notes reviewed. Prior medical records reviewed Vital Signs: reviewed and remarkable for tachycardia. Differential diagnosis: Vasovagal event, dehydration, infection, hypoglycemia, electrolyte abn ormalities, cardiac sources, intracerebral event, pulmonary embolism, seizure, toxicologic, neurologic, as well as other pathologies. ER treatment provided: See below Diagnostics interpreted by me: ECG: EKG was obtained in the emergency department. My interpretation is sinus tachycardia at 105 bpm. First-degree AV block was noted. PVCs were noted. Left bundle branch block pattern was noted with ST segment abnormalities. This was compared to a tracing from November 072018. At that time the QRS duration was 118 ms and now it is 158 ms. Otherwise no significant changes were noted. Cardiac Monitoring: An order was placed for continuous cardiac monitoring. The monitor shows a rate of 120 bpm with sinus tachycardia rhythm. Laboratory studies: As stated above and show below. Imaging studies: See below Consultation(s): I discussed this case with Dr. Acharya who is on-call for the [facility] group. They will evaluate the patient in the emergency department. 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 History of prostate cancer HTN (hypertension) Hypothyroidism Insomnia Peripheral vascular disease Pulmonary emphysema Tobacco use Surgical History Hx of CABG 1993, 2002 Hx of heart artery stent Status post femoral-popliteal bypass surgery left Family History Father Heart disease Social History Smoking Status: Current every day smoker Cigarettes Per Day: 10; Hx Alcohol Use: No Hx Substance Use: No Preferred Language: Bengali Communication Ability: Effective Cassandra Consultant Required: No Beliefs That Will Affect Care: None Current Living Situation: Spouse Other Information That Helps Us Care for You: No Feels Safe at Home: Yes Safety Concerns: Feels Safe At This Time Assistive Devices: Denture - Upper and Denture - Lower Allergies Allergies Allergy/AdvReac Type Severity Reaction Status Date / Time Sulfa (Sulfonamide Allergy Unknown HIVES Verified 05/10/21 16:08 Antibiotics) codeine AdvReac Mild MENTAL Verified 05/10/21 16:08 STATUS CHANGE morphine AdvReac Unknown CHANGE IN Verified 05/10/21 16:08 MENTAL STATUS Home Meds Home Medications Medication Instructions Recorded Confirmed aspirin 81 mg tablet,delayed 81 mg PO DAILY 11/06/18 05/10/21 release isosorbide mononitrate 30 mg 30 mg PO HS 11/06/18 05/10/21 tablet,extended release 24 hr lisinopril 5 mg tablet 5 mg PO HS 11/06/18 05/10/21 nitroglycerin 0.4 mg sublingual 0.4 mg SUBLINGUAL UD 11/06/18 05/10/21 tablet (Nitrostat) simvastatin 40 mg tablet 40 mg PO HS 11/06/18 05/10/21 gabapentin 100 mg capsule 100 mg PO TID 05/10/21 05/10/21 ipratropium bromide 42 mcg (0.06 2 spray INTRANASAL UD 05/10/21 05/10/21 %) nasal spray levothyroxine 100 mcg tablet 100 mcg PO DAILY 05/10/21 05/10/21 Results & Data (ED) Vital Signs Vital Signs - 24 hr 05/10/21 15:56 05/10/21 17:37 05/10/21 18:00 Temperature 36.5 C Temperature Source Oral Pulse Rate 104 H 96 H 97 H Pulse Rate from SpO2 Sensor 116 H 101 H Pulse Rhythm Regular Pulse Strength Normal Respiratory Rate 20 25 H 25 H Respiratory Effort / Characteristics Non-Labored Spontaneous Respiratory Depth Normal Respiratory Pattern Regular Blood Pressure 108/76 137/75 126/91 Blood Pressure Mean 86 95 102 Blood Pressure Position Sitting Pulse Oximetry 98 95 95 Oxygen Delivery Method Room Air Sepsis Recent Fever Within 48 Hours No Sepsis New/Unexplained Change in Mental Status No Sepsis Action Taken by Nursing No Action Required Home Medications Current Medication List: was personally reviewed by me Laboratory Data Attestation: I reviewed the patient's lab results. Result diagrams: 05/10/21 16:27 05/10/21 16:27 Lab Results 05/10/21 05/10/21 05/10/21 Range/Units 16:27 16:27 16:27 WBC 10.47 (4.8-10.8) K/uL RBC 3.75 L (4.7-6.1) M/uL Hgb 12.7 L (14.0-18.0) g/dL Hct 35.3 L (42-52) % MCV 94.1 (80-100) fL MCH 33.9 (25-34) pg MCHC 36.0 (32-36) g/dL RDW Std Deviation 47.6 H (36.4-46.3) fL RDW Coeff of Paul 13.8 (11.5-14.5) % Plt Count 111 L (130-400) K/uL MPV 11.9 H (7.4-10.4) fL Immature Gran % (Auto) 0.1 % Neut % (Auto) 85.2 % Lymph % (Auto) 7.4 % [place] % (Auto) 6.6 % Eos % (Auto) 0.6 % Baso % (Auto) 0.1 % Neut # (Auto) 8.93 H (1.4-6.5) K/uL Lymph # (Auto) 0.77 L (1.2-3.4) K/uL [place] # (Auto) 0.69 H (0.11-0.59) K/uL Eos # (Auto) 0.06 (0-0.5) K/uL Baso # (Auto) 0.01 (0-0.2) K/uL Immature Gran # (Auto) 0.01 (0.00-0.02) K/uL PT 10.4 (9.0-12.0) Seconds INR 1.0 (0.9-1.1) APTT 22.2 (21.0-31.0) Seconds PTT Ratio 0.8 Sodium 143 (136-145) mmol/L Potassium 3.6 (3.5-5.1) mmol/L Chloride 112 H (98-107) mmol/L Carbon Dioxide 26 (21-32) mmol/L Anion Gap 6.0 (3-11) BUN 16 (7-18) mg/dl Creatinine 1.02 (0.6-1.4) mg/dl Est Cr Clr Drug Dosing 36.8 ml/min Est GFR ( Amer) 78.4 ml/min Est GFR (Non-Af Amer) 67.7 ml/min BUN/Creatinine Ratio 15.6 (10-20) Glucose 117 H (70-99) mg/dl Calcium 9.0 (8.5-10.1) mg/dl Magnesium 1.9 (1.8-2.4) mg/dl Total Bilirubin 0.7 (0.2-1) mg/dl AST 50 H (15-37) U/L ALT 30 (12-78) U/L Alkaline Phosphatase 94 (45-117) U/L Total Creatine Kinase 132 (39-308) U/L CK-MB (CK-2) 3.6 (0.5-3.6) ng/ml CK/CKMB % Calc 2.7 (0-3.0) Troponin I 0.073 H* (0-0.045) ng/ml Total Protein 6.8 (6.4-8.2) gm/dl Albumin 3.6 (3.4-5.0) gm/dl Globulin 3.2 (2.5-4.0) gm/dl Albumin/Globulin Ratio 1.1 (0.9-2) Lipase 327 (73-393) U/L TSH 0.028 L (0.300-4.500) uIu/ml Free T4 1.71 H (0.8-1.6) ng/dl COVID-19 Eval Order SARS-CoV-2 (PCR) (Negative) 05/10/21 05/10/21 Range/Units 17:47 17:47 WBC (4.8-10.8) K/uL RBC (4.7-6.1) M/uL Hgb (14.0-18.0) g/dL Hct (42-52) % MCV (80-100) fL MCH (25-34) pg MCHC (32-36) g/dL RDW Std Deviation (36.4-46.3) fL RDW Coeff of Paul (11.5-14.5) % Plt Count (130-400) K/uL MPV (7.4-10.4) fL Immature Gran % (Auto) % Neut % (Auto) % Lymph % (Auto) % [place] % (Auto) % Eos % (Auto) % Baso % (Auto) % Neut # (Auto) (1.4-6.5) K/uL Lymph # (Auto) (1.2-3.4) K/uL [place] # (Auto) (0.11-0.59) K/uL Eos # (Auto) (0-0.5) K/uL Baso # (Auto) (0-0.2) K/uL Immature Gran # (Auto) (0.00-0.02) K/uL PT (9.0-12.0) Seconds INR (0.9-1.1) APTT (21.0-31.0) Seconds PTT Ratio Sodium (136-145) mmol/L Potassium (3.5-5.1) mmol/L Chloride (98-107) mmol/L Carbon Dioxide (21-32) mmol/L Anion Gap (3-11) BUN (7-18) mg/dl Creatinine (0.6-1.4) mg/dl Est Cr Clr Drug Dosing ml/min Est GFR ( Amer) ml/min Est GFR (Non-Af Amer) ml/min BUN/Creatinine Ratio (10-20) Glucose (70-99) mg/dl Calcium (8.5-10.1) mg/dl Magnesium (1.8-2.4) mg/dl Total Bilirubin (0.2-1) mg/dl AST (15-37) U/L ALT (12-78) U/L Alkaline Phosphatase (45-117) U/L Total Creatine Kinase (39-308) U/L CK-MB (CK-2) (0.5-3.6) ng/ml CK/CKMB % Calc (0-3.0) Troponin I (0-0.045) ng/ml Total Protein (6.4-8.2) gm/dl Albumin (3.4-5.0) gm/dl Globulin (2.5-4.0) gm/dl Albumin/Globulin Ratio (0.9-2) Lipase (73-393) U/L TSH (0.300-4.500) uIu/ml Free T4 (0.8-1.6) ng/dl COVID-19 Eval Order Covid19 at [facility] SARS-CoV-2 (PCR) NEGATIVE (Negative) Administered Medications Gabapentin (Gabapentin 100 Mg Cap) 100 mg PO TID VIC Stop: 06/09/21 20:59 Last Admin: 05/10/21 22:42 Dose: 100 mg Documented by: [id number] Heparin Sodium (Porcine) (Heparin Sod 5,000 Unit/0.5 Ml Vial) 5,000 units SQ Q12 VIC Stop: 06/09/21 21:59 Last Admin: 05/10/21 22:41 Dose: 5,000 units Documented by: [id number] Sodium Chloride (Nss 1000ml) 1,000 mls @ 80 mls/hr IV .[id number] VIC Stop: 05/11/21 07:59 Last Admin: 05/10/21 19:36 Dose: 80 mls/hr Documented by: [id number] Isosorbide Mononitrate (Isosorbide [place] Extended Rel 30 Mg Tabcr) 30 mg PO HS VIC Stop: 06/09/21 20:59 Last Admin: 05/10/21 22:42 Dose: 30 mg Documented by: [id number] Lisinopril (Lisinopril 5 Mg Tab) 5 mg PO HS VIC Stop: 06/09/21 20:59 Last Admin: 05/10/21 22:42 Dose: 5 mg Documented by: [id number] Simvastatin (Simvastatin 40 Mg Tab) 40 mg PO HS VIC Stop: 06/09/21 20:59 Last Admin: 05/10/21 22:41 Dose: 40 mg Documented by: [id number] Discontinued Medications Sodium Chloride (Nss) 500 mls @ 999 mls/hr IV .Q31M VIC Stop: 05/10/21 16:45 Last Infusion: 05/10/21 19:03 Dose: 0 mls/hr Documented by: [id number] Admin: 05/10/21 16:28 Dose: 999 mls/hr Documented by: [id number] Imaging Data Radiologist's Impression: Cervical Spine CT 05/10/21 16:02 CT cervical spine wo con CT DOSE: 902.31 mGy.cm CLINICAL HISTORY: 85 years-old Male with syncope. Acute syncope with neck trauma status post fall COMPARISON: CT soft tissue neck 03/06/2018 TECHNIQUE: Multiple axial CT images of the cervical spine were obtained without contrast. A dose lowering technique was utilized adhering to the principles of ALARA. FINDINGS: Demineralized appearance of the bones. Mild to moderate multilevel disc space narrowing. Posterior annular disc bulging is noted at several levels. There is a large posterior disc osteophyte complex at C4-C5. Severe multilevel facet arthrosis. No acute fracture or subluxation identified. There is multilevel neural foraminal narrowing with a least mild multilevel central canal stenosis. Trace right mastoid effusion. Emphysema with biapical pleural-parenchymal scarring. Right carotid endarterectomy changes. No prevertebral edema. IMPRESSION: No acute fracture or subluxation. ACT 112: Negative or not required by law. The above report was generated using voice recognition software. It may contain grammatical, syntax or spelling errors. Electronically signed by: Kvng Neri M.D. 05/10/2021 4:39 PM Chest X-Ray 05/10/21 16:03 XR chest 1V portable HISTORY: 85 years-old Male syncope acute syncope COMPARISON: CTA chest 11/06/2018, chest radiograph 11/06/2018 TECHNIQUE: Portable AP view of the chest FINDINGS: Cardiomediastinal and hilar silhouettes are within normal limits. Prior median sternotomy with surgical clips project over the chest. Mildly progressed int erstitial coarsening with emphysema. Chronic pleural thickening of the right lung apex. No pneumothorax, pleural effusion or overt pulmonary edema. Degenerative changes of the shoulders and spine. IMPRESSION: Emphysema without acute process. ACT 112: Negative or not required by law. The above report was generated using voice recognition software. It may contain grammatical, syntax or spelling errors. Electronically signed by: Kvng Neri M.D. 05/10/2021 4:[address] 05/10/21 16:03 CT head/brain wo con CLINICAL HISTORY: 85 years-old Male with syncope. Acute head injury status post fall with syncope TECHNIQUE: Multiple axial CT images of the head were obtained without contrast. A dose lowering technique was utilized adhering to the principles of ALARA. COMPARISON: CT cervical spine of same day, head CT 11/06/2018 FINDINGS: No acute intracranial hemorrhage, midline shift, intracranial mass, hydrocephalus, territorial ischemia or abnormal extra-axial collection. Age- related involutional changes with chronic microvascular ischemic disease. Encephalomalacia of the right frontal parietal lobe redemonstrated. Cerebral vascular calcifications. No acute calvarial fracture. Right-sided prosthetic globe. Prior left-sided lens repair. The paranasal sinuses, mastoid air cells, and middle ear cavities are clear. IMPRESSION: 1. No acute intracranial abnormality or calvarial fracture. 2. Chronic findings as above. ACT 112: Negative or not required by law. The above report was generated using voice recognition software. It may contain grammatical, syntax or spelling errors. Electronically signed by: Kvng Neri M.D. 05/10/2021 4:35 PM Discharge Plan Visit Data Chief Complaint: Fall Stated Complaint: Fall weakness unable to stand ED Provider: Bradley Esqueda Discharge Problem: Syncope, Elevated troponin, Abnormal EKG Patient Disposition: Admitted As Inpatient Discharge Instructions Interventions: ED Discharge Assessment Last Done: 05/10/21 20:13
[2021-05-10] MEDS ORDERED: SODIUM CHLORIDE 0.9% 500 ML IV SCH (16:15)
--- NOTE | 2021-05-10 16:24 | XRay Report ---
XR chest 1V portable HISTORY: 85 years-old Male syncope acute syncope COMPARISON: CTA chest 11/06/2018, chest radiograph 11/06/2018 TECHNIQUE: Portable AP view of the chest FINDINGS: Cardiomediastinal and hilar silhouettes are within normal limits. Prior median sternotomy with surgic al clips project over the chest. Mildly progressed interstitial coarsening with emphysema. Chronic pl eural thickening of the right lung apex. No pneumothorax, pleural effusion or overt pulmonary edema. Degenerative changes of the shoulders and spine. IMPRESSION: Emphysema without acute process. ACT 112: Negative or not required by law. The above report was generated using voice recognition software. It may contain grammatical, syntax o r spelling errors. Electronically signed by: Kvng Neri M.D. 05/10/2021 4:23 PM
--- NOTE | 2021-05-10 16:36 | CT Scan Report ---
CT head/brain wo con CLINICAL HISTORY: 85 years-old Male with syncope. Acute head injury status post fall with syncope TECHNIQUE: Multiple axial CT images of the head were obtained without contrast. A dose lowering tech nique was utilized adhering to the principles of ALARA. COMPARISON: CT cervical spine of same day, head CT 11/06/2018 FINDINGS: No acute intracranial hemorrhage, midline shift, intracranial mass, hydrocephalus, territorial ischem ia or abnormal extra-axial collection. Age-related involutional changes with chronic microvascular is chemic disease. Encephalomalacia of the right frontal parietal lobe redemonstrated. Cerebral vascular calcifications. No acute calvarial fracture. Right-sided prosthetic globe. Prior left-sided lens repair. The paranas al sinuses, mastoid air cells, and middle ear cavities are clear. IMPRESSION: 1. No acute intracranial abnormality or calvarial fracture. 2. Chronic findings as above. ACT 112: Negative or not required by law. The above report was generated using voice recognition software. It may contain grammatical, syntax o r spelling errors. Electronically signed by: Kvng Neri M.D. 05/10/2021 4:35 PM
--- NOTE | 2021-05-10 16:40 | CT Scan Report ---
CT cervical spine wo con CT DOSE: 902.31 mGy.cm CLINICAL HISTORY: 85 years-old Male with syncope. Acute syncope with neck trauma status post fall COMPARISON: CT soft tissue neck 03/06/2018 TECHNIQUE: Multiple axial CT images of the cervical spine were obtained without contrast. A dose low ering technique was utilized adhering to the principles of ALARA. FINDINGS: Demineralized appearance of the bones. Mild to moderate multilevel disc space narrowing. Po sterior annular disc bulging is noted at several levels. There is a large posterior disc osteophyte c omplex at C4-C5. Severe multilevel facet arthrosis. No acute fracture or subluxation identified. Ther e is multilevel neural foraminal narrowing with a least mild multilevel central canal stenosis. Trace right mastoid effusion. Emphysema with biapical pleural-parenchymal scarring. Right carotid endarterectomy changes. No prever tebral edema. IMPRESSION: No acute fracture or subluxation. ACT 112: Negative or not required by law. The above report was generated using voice recognition software. It may contain grammatical, syntax o r spelling errors. Electronically signed by: Kvng Neri M.D. 05/10/2021 4:39 PM
[2021-05-10 16:44] LABS: Basophils # (auto) 0.01 K/uL (0-0.2); Basophils % (auto) 0.1 %; Eosinophils # (auto) 0.06 K/uL (0-0.5); Eosinophils % (auto) 0.6 %; Hematocrit (blood only) 35.3 % (42-52); Hemoglobin 12.7 g/dL (14.0-18.0); Immature Granulocytes # (auto) 0.01 K/uL (0.00-0.02); Immature Granulocytes % (auto) 0.1 %; Lymphocytes # (auto) 0.77 K/uL (1.2-3.4); Lymphocytes % (auto) 7.4 %; Mean Corpuscular Hemoglobin 33.9 pg (25-34); Mean Corpuscular Volume 94.1 fL (80-100); Mean Platelet Volume 11.9 fL (7.4-10.4); Monocytes # (auto) 0.69 K/uL (0.11-0.59); Monocytes % (auto) 6.6 %; Neutrophils # (auto) 8.93 K/uL (1.4-6.5); Neutrophils % (auto) 85.2 %; Platelet Count 111 K/uL (130-400); RDW Coefficient of Variation 13.8 % (11.5-14.5); RDW Standard Deviation 47.6 fL (36.4-46.3); Red Blood Count 3.75 M/uL (4.7-6.1); White Blood Count 10.47 K/uL (4.8-10.8)
[2021-05-10 17:01] LABS: Partial Thromboplastin Ratio 0.8; Partial Thromboplastin Time 22.2 Seconds (21.0-31.0); Prothrombin Time 10.4 Seconds (9.0-12.0)
[2021-05-10 17:06] LABS: Albumin Level 3.6 gm/dl (3.4-5.0); BUN Creatinine Ratio 15.6 (10-20); Creatinine Clr Calc Pharmacy 36.8 ml/min; Est GFR (African American) 78.4 ml/min; Est GFR (Non-African American) 67.7 ml/min; Magnesium 1.9 mg/dl (1.8-2.4); Potassium 3.6 mmol/L (3.5-5.1)
[2021-05-10 17:29] LABS: Albumin Globulin Ratio 1.1 (0.9-2); Bilirubin,Total 0.7 mg/dl (0.2-1); Creatine Kinase MB 3.6 ng/ml (0.5-3.6); Globulin 3.2 gm/dl (2.5-4.0); Thyroid Stimulating Hormone 0.028 uIu/ml (0.300-4.500); Total Protein 6.8 gm/dl (6.4-8.2); Troponin I 0.073 ng/ml (0-0.045)
[2021-05-10 17:44] LABS: T4 Free Thyroxine 1.71 ng/dl (0.8-1.6)
--- NOTE | 2021-05-10 18:15 | History & Physical Report ---
Date of Service May 10, 2021 Assessment & Plan (1) Syncope and collapse: Plan: Patient is cachectic and appears malnourished. Multiple comorbidities and has a history of noncompliance. Poor hygiene and likely poor nutrition. He has positive orthostatics raising the concern for syncope secondary to orthostatic hypotension. He is a poor historian and is not forthcoming with information or details. Will give 1 L normal saline at this time and repeat orthostatics every 8 hours. Will monitor on telemetry and repeat echocardiogram in a.m. Patient has voiced in the past he is not interested in significant work-ups and treatments for his progressed vascular disease. Will ask cardiology to meet with him again and reassess the situation with him to explore options given his presentation to the hospital for treatment. (2) Ischemic cardiomyopathy: Plan: History of ischemic cardiomyopathy with echo in 2019 revealing severely reduced ejection fraction. At that time patient was not interested in further treatments and is currently a DNR/DNI. He is euvolemic to dry from a volume standpoint on exam. Repeat echo in a.m. (3) Elevated troponin: Plan: Trend overnight. ACS is always a possibility but considered less likely in favor of syncope secondary to orthostatic hypotension. Continue current medical therapy with aspirin, Imdur, lisinopril, simvastatin. (4) Tobacco use: Plan: Contemplative phase-NicoDerm as needed (5) Peripheral vascular disease: Plan: Chronic, stable, continue medical management (6) CAD (coronary artery disease): Plan: Chronic, stable, continue medical management per home regimen (7) HTN (hypertension): Plan: Blood pressure is at goal. Continue current therapy. (8) Malnutrition: Plan: He is roughly the same amount of weight that he was in 2018. Nutrition consult for general assessment. Patient appears malnourished. (9) Hypothyroidism: Plan: He denies having TSH is on the low end but still roughly normal. Continue levothyroxine at home dosage. (10) DVT prophylaxis: Plan: Heparin DNR/DNI per my discussion with him on admission Disposition-to PCU overnight for monitoring and work-up, discharged home per cardiology recommendations and based on PT/OT assessment. Shannon Acharya DO [facility] Hospitalist History of Present Illness Chief Complaint: Syncope Primary Care Provider: Lissett Andrews DO The patient is an 85-year-old man with a significant history of cardiac and peripheral vascular disease status post stroke, who presented to the ER after a syncopal event in his living room at home. The patient reports eating breakfast this morning and denies feeling poorly prior to losing consciousness. At one point he thought he might of tripped on a rug, however, he does feel he blacked out. He reports not hitting his head and has no headache at this time. He is not sure if his witnessed the event and she is not here to question. He woke up on the floor and realized he was on the floor without confusion. He did not lose control of bowel or bladder function. This patient has a history of medical noncompliance with medications as well as ongoing smoking despite laryngeal cancer status post treatment. His last echocardiogram revealed an ejection fraction of 20 to 25% in October 2018. At that time he was counseled on treatment options and his high risk of sudden cardiac . At that time he stated he did not want further tests and no other medications were changed. 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 He denies any weight loss or weight gain. With respect to weight loss, he states he really "just does not know." He does report 2 days of diarrhea, denies headache, and when asked why he continues to have a shallow cough, reports this is new. He denies any sick contacts and reports having 3 Covid vaccination shots. He denies any overt shortness of breath or chest pain. He denies any abdominal pain. He reports not feeling dehydrated. He smokes approximately 1/2 pack of cigarettes a day and denies any alcohol use. Allergies Allergy/AdvReac Type Severity Reaction Status Date / Time Sulfa (Sulfonamide Allergy Unknown HIVES Verified 05/10/21 16:08 Antibiotics) codeine AdvReac Mild MENTAL Verified 05/10/21 16:08 STATUS CHANGE morphine AdvReac Unknown CHANGE IN Verified 05/10/21 16:08 MENTAL STATUS Home Medications Medication Instructions Recorded Confirmed Type aspirin 81 mg tablet,delayed 81 mg PO DAILY 11/06/18 05/10/21 History release isosorbide mononitrate 30 mg 30 mg PO HS 11/06/18 05/10/21 History tablet,extended release 24 hr lisinopril 5 mg tablet 5 mg PO HS 11/06/18 05/10/21 History nitroglycerin 0.4 mg sublingual 0.4 mg SUBLINGUAL UD 11/06/18 05/10/21 History tablet (Nitrostat) simvastatin 40 mg tablet 40 mg PO HS 11/06/18 05/10/21 History gabapentin 100 mg capsule 100 mg PO TID 05/10/21 05/10/21 History ipratropium bromide 42 mcg (0.06 2 spray INTRANASAL UD 05/10/21 05/10/21 History %) nasal spray levothyroxine 100 mcg tablet 100 mcg PO DAILY 05/10/21 05/10/21 History 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 History of prostate cancer HTN (hypertension) Hypothyroidism Insomnia Peripheral vascular disease Pulmonary emphysema Tobacco use Surgical History Hx of CABG 1993, 2002 Hx of heart artery stent Status post femoral-popliteal bypass surgery left Family History Father Heart disease Social History Smoking Status: Current every day smoker Cigarettes Per Day: 20; Hx Alcohol Use: No Hx Substance Use: No Preferred Language: Fijian Communication Ability: Effective Low Alt[employer] Required: No Beliefs That Will Affect Care: None Current Living Situation: Spouse Feels Safe at Home: Yes Assistive Devices: Glasses Review of Systems Review of Systems: At least ten systems were reviewed and negative except as indicated in HPI above. Physical Exam Physical Exam: CONSTITUTIONAL: cachectic-appearing, vitals as above, generally NAD, generally disheveled and unkempt, poor personal hygiene. Has old food dripping down center of chest. EYES: Eyes appear very sunken, prosthetic eye on the right with significant drainage, normal conjunctivae, no scleral icterus ENT: external ear and nose normal, oropharynx clear NECK: trachea midline RESPIRATORY: clear to auscultation bilaterally with diminished breath sounds throughout all lung cedillo, no crackles, rales or wheezes, normal respiratory effort CARDIOVASCULAR: regular rate and rhythm, S1 and 2 heard without murmurs, gallops or rubs, no JVD, no peripheral edema CHEST: inspection of chest was normal GASTROINTESTINAL: soft, nontender, ND, no guarding MUSCULOSKELETAL: strength 5/5 throughout, head is normocephalic and atraumatic, neck supple, normal palpation of chest wall without tenderness SKIN: warm and dry NEUROLOGIC: CN 2-12 grossly intact, no sensory deficit, normal cognition, normal speech, no tremor PSYCHIATRIC: alert cooperative and oriented to person, place and time. Euthymic mood, makes good eye contact, language grossly intact, recent and remote memory grossly intact. Results & Data Results & Data ([facility]) Vital Signs (Past 12 Hours) Vital Signs Temp Pulse Resp BP Pulse Ox 05/10/21 17:37 96 H 25 H 137/75 95 05/10/21 15:56 36.5 C 104 H 20 108/76 98 Laboratory Results Short CBC 05/10/21 Range/Units 16:27 WBC 10.47 (4.8-10.8) K/uL Hgb 12.7 L (14.0-18.0) g/dL Hct 35.3 L (42-52) % Plt Count 111 L (130-400) K/uL BMP 05/10/21 16:27 Sodium 143 Potassium 3.6 Chloride 112 H Carbon Dioxide 26 BUN 16 Creatinine 1.02 Glucose 117 H Calcium 9.0 Cardiac Enzymes 05/10/21 Range/Units 16:27 Total Creatine Kinase 132 (39-308) U/L CK-MB (CK-2) 3.6 (0.5-3.6) ng/ml Troponin I 0.073 H* (0-0.045) ng/ml Liver Function 05/10/21 Range/Units 16:27 Total Bilirubin 0.7 (0.2-1) mg/dl AST 50 H (15-37) U/L ALT 30 (12-78) U/L Alkaline Phosphatase 94 (45-117) U/L Albumin 3.6 (3.4-5.0) gm/dl Diagnostic Findings CT head/brain wo con CLINICAL HISTORY: 85 years-old Male with syncope. Acute head injury status post fall with syncope TECHNIQUE: Multiple axial CT images of the head were obtained without contrast. A dose lowering technique was utilized adhering to the principles of ALARA. COMPARISON: CT cervical spine of same day, head CT 11/06/2018 FINDINGS: No acute intracranial hemorrhage, midline shift, intracranial mass, hydrocephalus, territorial ischemia or abnormal extra-axial collection. Age- related involutional changes with chronic microvascular ischemic disease. Encephalomalacia of the right frontal parietal lobe redemonstrated. Cerebral vascular calcifications. No acute calvarial fracture. Right-sided prosthetic globe. Prior left-sided lens repair. The paranasal sinuses, mastoid air cells, and middle ear cavities are clear. IMPRESSION: 1. No acute intracranial abnormality or calvarial fracture. 2. Chronic findings as above. XR chest 1V portable HISTORY: 85 years-old Male syncope acute syncope COMPARISON: CTA chest 11/06/2018, chest radiograph 11/06/2018 TECHNIQUE: Portable AP view of the chest FINDINGS: Cardiomediastinal and hilar silhouettes are within normal limits. Prior median sternotomy with surgical clips project over the chest. Mildly progressed interstitial coarsening with emphysema. Chronic pleural thickening of the right lung apex. No pneumothorax, pleural effusion or overt pulmonary edema. Degenerative changes of the shoulders and spine. IMPRESSION: Emphysema without acute process. CT cervical spine wo con CT DOSE: 902.31 mGy.cm CLINICAL HISTORY: 85 years-old Male with syncope. Acute syncope with neck trauma status post fall COMPARISON: CT soft tissue neck 03/06/2018 TECHNIQUE: Multiple axial CT images of the cervical spine were obtained without contrast. A dose lowering technique was utilized adhering to the principles of ALARA. FINDINGS: Demineralized appearance of the bones. Mild to moderate multilevel disc space narrowing. Posterior annular disc bulging is noted at several levels. There is a large posterior disc osteophyte complex at C4-C5. Severe multilevel facet arthrosis. No acute fracture or subluxation identified. There is multilevel neural foraminal narrowing with a least mild multilevel central canal stenosis. Trace right mastoid effusion. Emphysema with biapical pleural-parenchymal scarring. Right carotid endarterectomy changes. No prevertebral edema. IMPRESSION: No acute fracture or subluxation. Code Status & VTE Plan VTE Prophylaxis Plan VTE Prophylaxis will be ordered: Yes
[2021-05-10] MEDS ORDERED: NITROGLYCERIN SL 0.4 MG/TAB TAB SL SCH (19:30)
[2021-05-10] MEDS ORDERED: SODIUM CHLORIDE 0.9% 1000ML 1,000 ML IV SCH (19:30)
[2021-05-10] MEDS ORDERED: ONDANSETRON INJ 2 MG/ML 2 ML VIAL IV PRN (20:51)
[2021-05-10] MEDS ORDERED: ACETAMINOPHEN 325 MG TAB PO PRN (20:51)
[2021-05-10] MEDS ORDERED: NITROGLYCERIN SL 0.4 MG/TAB TAB SL PRN (20:51)
[2021-05-10] MEDS ORDERED: SIMVASTATIN 40 MG TAB PO SCH (21:00)
[2021-05-10] MEDS ORDERED: ENOXAPARIN INJ 30 MG/0.3 ML SYR SQ SCH (21:00)
[2021-05-10] MEDS ORDERED: HEPARIN SOD 5,000 UNIT/0.5 ML VIAL SQ SCH (22:00)
[2021-05-10] MEDS: ISOSORBIDE MONO EXTENDED REL 30 MG TABCR PO SCH (22:42)
[2021-05-10] MEDS: lisinopril 5 MG TAB PO SCH (22:42)
[2021-05-10] MEDS: GABAPENTIN 100 MG CAP PO SCH (22:42)
[2021-05-10 23:43] LABS: Appearance Urine Clear (Clear); Bacteria Urine Automated Negative (Negative); Bilirubin Urine Negative (Negative); Blood Urine Negative (Negative); Color Urine Yellow; Glucose Urine UA Negative (Negative); Ketones Urine Trace (Negative); Leukocyte Esterase Urine Negative (Negative); Nitrite Urine Negative (Negative); Protein Urine 1+ (Negative); RBC Urine Automated 0-4 /hpf (0-4); Specific Gravity Urine 1.019 (1.000-1.030); Urobilinogen Urine Negative (Negative)
[2021-05-11] MEDS ORDERED: Heparin IV Adult Wt-Based Low-Dose *NO* Bolus Protocol IV SCH (00:43)
--- NOTE | 2021-05-11 00:43 | Communication Note ---
Date of Service: May 11, 2021 Notified by RN of second troponin result 3.7 (from 0.07) Patient comfortable as per RN. AP Syncope with troponin elevation (NSTEMI rule out PE) IV Heparin CT chest rule out PE as etiology of syncopal event with troponin elevation Initiate beta-melvi for NSTEMI if PE study unremarkable. Patient agreeable to plan of care. Will relay to AM provider.
[2021-05-11] MEDS ORDERED: OPTIRAY 320 125ml IV ONE (00:49)
[2021-05-11] MEDS: HEPARIN SODIUM/DEXTROSE 25,000 UNITS/500 ML BAG IV SCH (02:28)
[2021-05-11 03:59] LABS: Hematocrit (blood only) 33.3 % (42-52); Mean Corpuscular Hemoglobin 30.3 pg (25-34); Mean Corpuscular Volume 91.7 fL (80-100); Mean Platelet Volume 11.9 fL (7.4-10.4); Platelet Count 111 K/uL (130-400); RDW Coefficient of Variation 13.9 % (11.5-14.5); Red Blood Count 3.63 M/uL (4.7-6.1); White Blood Count 9.04 K/uL (4.8-10.8)
[2021-05-11] MEDS: METOPROLOL TARTRATE 25 MG TAB PO SCH ×2 (04:01→21:13)
[2021-05-11 04:16] LABS: BUN Creatinine Ratio 17.1 (10-20); Calcium 8.3 mg/dl (8.5-10.1); Creatinine Clr Calc Pharmacy 39.6 ml/min; Est GFR (African American) 91.2 ml/min; Est GFR (Non-African American) 78.7 ml/min; Magnesium 1.7 mg/dl (1.8-2.4); Potassium 3.9 mmol/L (3.5-5.1)
[2021-05-11 04:42] LABS: Troponin I 10.1 ng/ml (0-0.045)
[2021-05-11] MEDS: LEVOTHYROXINE SODIUM 100 MCG TABLET PO SCH (08:06)
--- NOTE | 2021-05-11 08:19 | Hospitalist Progress Note ---
Date of Service May 11, 2021 Assessment & Plan (1) NSTEMI (non-ST elevated myocardial infarction): Plan: Syncope and collapse yesterday with subsequent elevation in troponin enzyme. High risk for ACS and sudden cardiac with known cardiac comorbidities. Currently on medical treatment with heparin, aspirin. Low-dose beta-melvi started overnight. Continue home doses of Imdur, lisinopril, simvastatin. Pending cardiology consultation recommendations today. Notably patient has not wanted to pursue additional treatments or investigation into his cardiac issues in the past. (2) Syncope and collapse: Plan: Patient is cachectic and appears malnourished. Multiple comorbidities and has a history of noncompliance. Poor hygiene and likely poor nutrition. Positive orthostatics on admission concerning for orthostatic hypotension contributing to syncope. He is a poor historian and is not forthcoming with information or details. Cautious normal saline given in setting of known low EF with continued trend of orthostatic vital signs. Will monitor on telemetry and repeat echocardiogram and cardiology evaluation today. (3) Ischemic cardiomyopathy: Plan: History of ischemic cardiomyopathy with echo in 2019 revealing severely reduced ejection fraction. At that time patient was not interested in further treat ments and is currently a DNR/DNI. He is euvolemic to dry from a volume standpoint on exam. Repeat echo today.. (4) Tobacco use: Plan: Contemplative phase-NicoDerm as needed (5) Peripheral vascular disease: Plan: Chronic, stable, continue medical management (6) CAD (coronary artery disease): Plan: Chronic, stable, continue medical management per home regimen (7) HTN (hypertension): Plan: Blood pressure is at goal. Continue current therapy. (8) Malnutrition: Plan: He is roughly the same amount of weight that he was in 2018. Nutrition consult for general assessment. Patient appears malnourished. (9) Hypothyroidism: Plan: He denies having TSH is on the low end but still roughly normal. Continue levothyroxine at home dosage. (10) DVT prophylaxis: Plan: Heparin drip DNR/DNI per my discussion with him on admission Disposition-continue PCU stay pending further cardiology recommendations and PT/OT assessment for safety or to return home. Ideally, he would stay for another 24 to 48 hours for continue medical treatment of NSTEMI. Shannon Acharya DO [facility] Hospitalist Admission and Anticipated Discharge Date Admission Date: May 10, 2021 Subjective 85-year-old man with history of extensive cardio vascular and peripheral vascular disease with history of ischemic cardiomyopathy presented with syncope and collapse while at home. Overnight troponin kiran from 0.073-->3.77--->10.1. Patient denies any chest pain overnight or currently and is not short of breath. He is overall asymptomatic and requesting to go home. He states he has to help his at home. BP slightly low overnight with pulse mildly tachycardic in the low 100s. He was started on a heparin drip. Reports not being able to get out of bed as he was "not allowed." Review of Systems Review of Systems: At least ten systems were reviewed and negative except as indicated in HPI above. Physical Exam Physical Exam: CONSTITUTIONAL: cachectic-appearing, vitals as above, generally NAD EYES: prosthetic eye on the right, normal conjunctivae, no scleral icterus ENT: external ear and nose normal, oropharynx clear NECK: trachea midline RESPIRATORY: clear to auscultation bilaterally with diminished breath sounds th roughout all lung cedillo, no crackles, rales or wheezes, normal respiratory effort CARDIOVASCULAR: regular rate and rhythm, S1 and 2 heard without murmurs, gallops or rubs, no JVD, no peripheral edema CHEST: inspection of chest was normal GASTROINTESTINAL: soft, nontender, ND, no guarding MUSCULOSKELETAL: strength 5/5 throughout, head is normocephalic and atraumatic, neck supple, normal palpation of chest wall without tenderness SKIN: warm and dry NEUROLOGIC: CN 2-12 grossly intact, no sensory deficit, normal cognition, normal speech, no tremor PSYCHIATRIC: alert cooperative and oriented to person, place and time. Euthymic mood, makes good eye contact, language grossly intact, recent and remote memory grossly intact. Results & Data Results & Data ([facility]) Vital Signs (Past 12 Hours) Vital Signs Temp Pulse Resp BP Pulse Ox 05/11/21 03:54 36.4 C L 106 H 18 95/58 L 92 05/10/21 23:45 37.0 C 65 19 120/68 92 05/10/21 21:00 91 05/10/21 20:33 36.6 C 120 H 22 125/65 Laboratory Results Short CBC 05/10/21 05/11/21 Range/Units 16:27 03:49 WBC 10.47 9.04 (4.8-10.8) K/uL Hgb 12.7 L 11.0 L (14.0-18.0) g/dL Hct 35.3 L 33.3 L (42-52) % Plt Count 111 L 111 L (130-400) K/uL BMP 05/10/21 05/11/21 16:27 03:49 Sodium 143 142 Potassium 3.6 3.9 Chloride 112 H 112 H Carbon Dioxide 26 23 BUN 16 16 Creatinine 1.02 0.90 Glucose 117 H 120 H Calcium 9.0 8.3 L Cardiac Enzymes 05/10/21 05/10/21 05/11/21 Range/Units 16:27 22:29 03:49 Total Creatine Kinase 132 (39-308) U/L CK-MB (CK-2) 3.6 (0.5-3.6) ng/ml Troponin I 0.073 H* 3.770 H* 10.100 H* (0-0.045) ng/ml Liver Function 05/10/21 Range/Units 16:27 Total Bilirubin 0.7 (0.2-1) mg/dl AST 50 H (15-37) U/L ALT 30 (12-78) U/L Alkaline Phosphatase 94 (45-117) U/L Albumin 3.6 (3.4-5.0) gm/dl Urine 05/10/21 Range/Units 23:15 Urine Color Yellow Urine Appearance Clear (Clear) Urine pH 5.0 (4.5-7.5) Ur Specific [place] 1.019 (1.000-1.030) Urine Protein 1+ H (Negative) Urine Glucose (UA) Negative (Negative) Medications Administered Current Inpatient Medications Acetaminophen (Acetaminophen 325 Mg Tab) 650 mg PO Q4H PRN PRN Reason: Pain or Fever Stop: 06/09/21 20:50 Aspirin (Aspirin 81 Mg Ectab) 81 mg PO DAILY VIC Stop: 06/10/21 08:59 Gabapentin (Gabapentin 100 Mg Cap) 100 mg PO TID VIC Stop: 06/09/21 20:59 Last Admin: 05/10/21 22:42 Dose: 100 mg Documented by: Heparin Sodium/Dextrose (Heparin Sodium/Dextrose) 25,000 units in 500 mls @ 11 mls/hr IV .Q24H VIC; Protocol Stop: 06/10/21 00:44 Last Titration: 05/11/21 07:27 Dose: 550 units/hr, 11 mls/hr Documented by: Isosorbide Mononitrate (Isosorbide [place] Extended Rel 30 Mg Tabcr) 30 mg PO HS [facility] Stop: 06/09/21 20:59 Last Admin: 05/10/21 22:42 Dose: 30 mg Documented by: Levothyroxine Sodium (Levothyroxine Sodium 100 Mcg Tablet) 100 mcg PO DAILYBB [facility] Stop: 06/10/21 06:29 Last Admin: 05/11/21 08:06 Dose: 100 mcg Documented by: Lisinopril (Lisinopril 5 Mg Tab) 5 mg PO HS [facility] Stop: 06/09/21 20:59 Last Admin: 05/10/21 22:42 Dose: 5 mg Documented by: Metoprolol Tartrate (Metoprolol Tartrate 25 Mg Tab) 12.5 mg PO BID [facility] Stop: 06/10/21 03:14 Last Admin: 05/11/21 04:01 Dose: Not Given Documented by: Nitroglycerin (Nitroglycerin Sl 0.4 Mg/Tab Tab) 0.4 mg SL UD PRN PRN Reason: Chest Pain Stop: 06/09/21 20:50 Ondansetron HCl (Ondansetron Inj 2 Mg/Ml 2 Ml Vial) 4 mg IV Q6H PRN PRN Reason: Nausea Stop: 06/09/21 20:50 Simvastatin (Simvastatin 40 Mg Tab) 40 mg PO [facility] Stop: 06/09/21 20:59 Last Admin: 05/10/21 22:41 Dose: 40 mg Documented by:
--- NOTE | 2021-05-11 08:29 | CT Scan Report ---
CHEST CTA for PULMONARY ARTERIES CT DOSE: 261.99 mGy.cm HISTORY: Shortness of breath. syncope, abn trop TECHNIQUE: Multiaxial CT images of the chest were performed following the intravenous administration of contrast to evaluate the pulmonary arteries. Maximal intensity projection images were also obtaine d. A dose lowering technique was utilized adhering to the principles of ALARA. COMPARISON STUDY: Chest CTA 11/06/2018. FINDINGS: Limited views of the upper abdomen demonstrate normal liver, spleen, and adrenal glands. No filling defects within the pulmonary arteries to suggest a pulmonary embolus. There are small bilate ral pleural effusions. The heart is mildly enlarged. No mediastinal or hilar lymphadenopathy. Normal caliber thoracic aorta with no evidence for dissection. Biapical pleural-parenchymal scarlike densiti es are again noted. Emphysema. Mild central bronchial wall thickening. A 5 mm nodular density within the left lower lobe posteriorly. This may represent atelectasis. Patchy groundglass densities within the right lower lobe posteriorly. This favors mild atelectasis from the pleural effusion. Mild inters titial thickening, right greater than left. This may represent mild congestive change. IMPRESSION: 1. No evidence for pulmonary embolus. 2. Emphysema. 3. Small bilateral pleural effusions. 4. Mild central bronchial wall thickening with mild right greater than left interstitial thickening. This raises the possibility of mild congestive change. 5. Cardiomegaly. 6. A 5 mm nodule within the left lower lobe posteriorly. Recommend follow-up as detailed below. Please refer to below summary of Fleischner criteria recommendations for follow-up of incidental CT n odules (Mimi Barrow, Guidelines for management of small pulmonary nodules detected on CT scans: A sta tement from the Fleischner Society, Radiology 237: [phone].) SOLID NODULES Solitary nodule size: <6 mm * Low risk patients: no follow-up needed * high risk patients: optional CT at 12 months Solitary nodule size: 6-8 mm * Low risk patients: follow-up at 6-12 months, then consider further follow-up at 18-24 months * high risk patients: initial follow-up CT at 6-12 months and then at 18-24 months if no change Solitary nodule size: >8 mm * either low or high risk patients - consider follow-up CT at 3 months, and/or CT-PET, and/or biopsy Multiple nodules size: <6 mm * Low risk patients: no routine follow-up * high risk patients: optional CT at 12 months Multiple nodules size: 6-8 mm * Low risk patients: follow-up at 3-6 months, then consider further follow-up at 18-24 months * high risk patients: follow-up at 3-6 months, then at 18-24 months if no change Multiple nodules size: >8 mm * Low risk patients: follow-up at 3-6 months, then consider further follow-up at 18-24 months * high risk patients: follow-up at 3-6 months, then at 18-24 months if no change Note: newly detected indeterminate nodule in persons 35 years of age or older. * Low risk patients: minimal or absent history of smoking and/or other known risk factors * high risk patients: history of smoking or of other known risk factors (e.g. first degree relative with lung cancer, or exposure to asbestos, radon, uranium) * if a nodule up to 8 mm is partly solid or is ground glass further follow-up is required after 24 m onths to exclude possible slow growing adenocarcinoma (DECLAN) SUBSOLID NODULES Solitary pure ground-glass nodule * nodule size <6 mm - no CT follow-up required * nodule size >=6 mm - follow-up CT at 6-12 months, then every 2 years until 5 years Solitary part-solid nodule * nodule size <6 mm - no CT follow-up required * nodule size >=6 mm - follow-up CT at 3-6 months. If unchanged, and solid component remains <6 mm, then annual follow-up for 5 years Multiple subsolid nodules * nodule size <6 mm - follow-up CT at 3-6 months, consider further follow-up at 2 and 4 years if sta ble * nodule size >=6 mm - follow-up CT at 3-6 months, subsequent management based on the most suspiciou s nodule(s) ACT 112: Negative or not required by law. Electronically signed by: Juan Fritz M.D. 05/11/2021 8:28 AM
--- NOTE | 2021-05-11 08:51 | Cardiology Consultation ---
Date of Consultation May 11, 2021 Assessment & Plan (1) NSTEMI (non-ST elevated myocardial infarction): (2) Malnutrition: (3) Ischemic cardiomyopathy: (4) Syncope and collapse: (5) CAD (coronary artery disease): (6) History of CVA (cerebrovascular accident): (7) Carotid stenosis: (8) History of laryngeal cancer: (9) Peripheral vascular disease: (10) Tobacco use: (11) HTN (hypertension): (12) Carotid stenosis: Medically complex 85 yo, malnourished presents with possible syncopal event troponin peaked but denies chest pain complex CAD hx declining further medical treatment and intervention in the past given lack of symptoms would hold off repeat cardiac cath at this time repeat echo cont heparin for 48 hours cont outpatient doses of aspirin, lisinopril and imdur will add low dose metoprolol and plavix change simvastatin to atorvastatin 80mg daily cont to monitor on tele pt very anxious for discharge History of Present Illness Reason for Consultation: syncope/nstemi Requesting Physician: Dr. Nguyen Attending Physician: Shannon Acharya DO History of Present Illness Medically complex 85 yo male presented to ED on 05/10/21 with reports of possible syncope. She states that she's been feeling tired and run down for a few weeks now. Having AVILA over the last week without chest pain or palpitations. On the morning of presentation, was sitting on edge of bed when suddenly lost consciousness. EMS summoned and upon arrival found to be severely anemic. PAST SURGICAL HISTORY: 1. Most recent cardiac catheterization in 2011 showing severe [place] vessel triple disease with a patent LIU to the LAD and occluded vein graft to the RCA. 2. Left carotid endarterectomy. 3. Right carotid artery stenting. 4. CABG x2 with a LIU to the LAD and vein graft to the RCA/PDA. 5. PCI to the LAD with a bare metal stent. 6. Left femoral popliteal bypass. 7. Laryngeal carcinoma resection. PAST MEDICAL ILLNESSES: 1. Complex coronary artery disease. 2. Severe peripheral vascular disease. 3. Tobacco abuse, ongoing. 4. COPD. 5. 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 6. Hypertension. 7. Hyperlipidemia. 8. Prostate cancer. 9. Hypothyroidism. 10. Medical noncompliance. Allergies Allergy/AdvReac Type Severity Reaction Status Date / Time Sulfa (Sulfonamide Allergy Unknown HIVES Verified 05/10/21 16:08 Antibiotics) codeine AdvReac Mild MENTAL Verified 05/10/21 16:08 STATUS CHANGE morphine AdvReac Unknown CHANGE IN Verified 05/10/21 16:08 MENTAL STATUS Home Medications Medication Instructions Recorded Confirmed Type aspirin 81 mg tablet,delayed 81 mg PO DAILY 11/06/18 05/10/21 History release isosorbide mononitrate 30 mg 30 mg PO HS 11/06/18 05/10/21 History tablet,extended release 24 hr lisinopril 5 mg tablet 5 mg PO HS 11/06/18 05/10/21 History nitroglycerin 0.4 mg sublingual 0.4 mg SUBLINGUAL UD 11/06/18 05/10/21 History tablet (Nitrostat) simvastatin 40 mg tablet 40 mg PO HS 11/06/18 05/10/21 History gabapentin 100 mg capsule 100 mg PO TID 05/10/21 05/10/21 History ipratropium bromide 42 mcg (0.06 2 spray INTRANASAL UD 05/10/21 05/10/21 History %) nasal spray levothyroxine 100 mcg tablet 100 mcg PO DAILY 05/10/21 05/10/21 History atorvastatin 40 mg tablet 80 mg PO QAM #30 tab 05/13/21 Rx clopidogrel 75 mg tablet 75 mg PO QAM #30 tab 05/13/21 Rx metoprolol tartrate 25 mg tablet 12.5 mg PO BID #60 tab 05/13/21 Rx Patient History Medical History Carotid stenosis s/p L endarterectomy, R stenting "years ago" 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, 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 History of prostate cancer HTN (hypertension) Hypothyroidism Insomnia Peripheral vascular disease Pulmonary emphysema Tobacco use Surgical History Hx of CABG 1993, 2002 Hx of heart artery stent Status post femoral-popliteal bypass surgery left Family History Father Heart disease Social History Smoking Status: Current every day smoker Cigarettes Per Day: 10; Hx Alcohol Use: No Hx Substance Use: No Preferred Language: Greek Communication Ability: Unable Restoration Technician Required: No Beliefs That Will Affect Care: None marital status: Current Living Situation: Spouse How many Children do You have: 4 Feels Safe at Home: Yes Assistive Devices: Oxygen - Continuous Review of Systems Review of Systems: All systems reviewed & are unremarkable except as noted in HPI & below Physical Exam Physical Exam: General: Awake, alert and oriented x 3. No acute distress. HEENT: Normocephalic, atraumatic. Pupils equal, round and reactive to light and accommodation. Extraocular muscles are intact. Anicteric sclera. Moist mucous membranes. Neck: No JVD. No bruit. Cardiovascular: Regular. Positive S-4. Normal S-1 and S-2. No S-3. 3/6 mid to late systolic ejection murmur, greatest at the right sternal border, second intercostal space with radiation to the bilateral carotids. No rubs. Pulmonary: Clear to auscultation bilaterally. No rales, rhonchi, or wheezing. Abdomen: Bowel sounds x 4, soft. No rebound, guarding or tenderness. No organomegaly. Extremities: No clubbing, cyanosis or edema. +2 pedal pulses bilaterally. Skin: Warm and dry. Results & Data ([facility]) Vital Signs (Past 12 Hours) Vital Signs Temp Pulse Resp BP Pulse Ox 05/11/21 08:18 36.7 C 99 H 18 130/76 92 05/11/21 03:54 36.4 C L 106 H 18 95/58 L 92 05/10/21 23:45 37.0 C 65 19 120/68 92 05/10/21 21:00 91
[2021-05-11] MEDS: ASPIRIN 81 MG ECTAB PO SCH (08:57)
[2021-05-11] MEDS: GABAPENTIN 100 MG CAP PO SCH ×3 (08:57→21:13)
[2021-05-11 09:09] LABS: Partial Thromboplastin Ratio 1.8
--- NOTE | 2021-05-11 09:35 | Electrocardiogram Report ---
Test Reason : Blood Pressure : / mmHG Vent. Rate : 105 BPM Atrial Rate : 105 BPM P-R Int : 288 ms QRS Dur : 158 ms QT Int : 330 ms P-R-T Axes : 000 -43 129 degrees QTc Int : 436 ms Sinus tachycardia with 1st degree A-V block with frequent Premature ventricular complexes Left axis deviation Left bundle branch block Abnormal ECG When compared with ECG of 07-NOV-2018 08:00, Left bundle branch block is now Present Borderline criteria for Anterior infarct are no longer Present Criteria for Inferior infarct are no longer Present Confirmed by Zac Gibbons ([id number]) on 05/11/2021 9:35:11 AM Referred By: REFERRED SELF Confirmed By:Zac Gibbons
[2021-05-11 09:44] LABS: Partial Thromboplastin Time 48.1 Seconds (21.0-31.0)
--- NOTE | 2021-05-11 10:03 | Electrocardiogram Report ---
Test Reason : Blood Pressure : / mmHG Vent. Rate : 095 BPM Atrial Rate : 095 BPM P-R Int : 224 ms QRS Dur : 162 ms QT Int : 438 ms P-R-T Axes : 082 -48 087 degrees QTc Int : 550 ms Sinus rhythm with 1st degree A-V block with occasional Premature ventricular complexes Left atrial enlargement Left axis deviation Left bundle branch block Prolonged QTc Abnormal ECG When compared with ECG of 10-MAY-2021 16:21, (unconfirmed) QT has lengthened Confirmed by Zac Gibbons ([id number]) on 05/11/2021 10:03:21 AM Referred By: REFERRED SELF Confirmed By:Zac Gibbons
[2021-05-11] MEDS: CLOPIDOGREL BISULFATE 75 MG TAB PO SCH (15:14)
[2021-05-11] MEDS ORDERED: METOPROLOL TARTRATE 1 MG/ML VIAL IV STA (19:50)
[2021-05-11] MEDS ORDERED: METOPROLOL TARTRATE 1 MG/ML VIAL IV ONE (19:52)
[2021-05-11] MEDS ORDERED: POTASSIUM CHLORIDE CRTAB 20 MEQ TABCR PO STA (19:52)
[2021-05-11] MEDS ORDERED: XOPENEX/ATROVENT 1.25mg/0.5MG NEB COMBO NEB STA (19:54)
[2021-05-11] MEDS ORDERED: IPRATROPIUM BROMIDE NEB SOLN 0.02% 2.5 ML VIAL INH STA (19:54)
[2021-05-11] MEDS ORDERED: LEVALBUTEROL 1.25MG/0.5ML NEB INH STA (20:00)
[2021-05-11] MEDS: MAGNESIUM SULFATE / D5W 1 GM/100 ML BAG IV SCH ×2 (20:06→22:14)
[2021-05-11 20:20] LABS: HCO3 ABG 18 mmol/L (19-24); Oxygen Saturation ABG 94.3 % (90-95); PCO2 ABG 30 mmHg (35-46); PO2 ABG 71 mmHg (80-95)
[2021-05-11 20:31] LABS: Allen Test POS (Pos)
[2021-05-11 20:35] LABS: Basophils # (auto) 0.02 K/uL (0-0.2); Basophils % (auto) 0.2 %; Eosinophils # (auto) 0.01 K/uL (0-0.5); Eosinophils % (auto) 0.1 %; Hemoglobin 12.2 g/dL (14.0-18.0); Immature Granulocytes # (auto) 0.01 K/uL (0.00-0.02); Immature Granulocytes % (auto) 0.1 %; Lymphocytes # (auto) 2.09 K/uL (1.2-3.4); Mean Corpuscular Hemoglobin 30.2 pg (25-34); Mean Corpuscular Hgb Conc 32.1 g/dL (32-36); Mean Corpuscular Volume 94.1 fL (80-100); Mean Platelet Volume 12.4 fL (7.4-10.4); Monocytes # (auto) 1.01 K/uL (0.11-0.59); Monocytes % (auto) 8.2 %; Neutrophils # (auto) 9.14 K/uL (1.4-6.5); Neutrophils % (auto) 74.4 %; Platelet Count 149 K/uL (130-400); RDW Coefficient of Variation 14.2 % (11.5-14.5); RDW Standard Deviation 48.9 fL (36.4-46.3); Red Blood Count 4.04 M/uL (4.7-6.1); White Blood Count 12.28 K/uL (4.8-10.8)
[2021-05-11] MEDS ORDERED: FUROSEMIDE 20 MG in SYRINGE 0 ML IV ONE (20:45)
[2021-05-11 20:52] LABS: BUN Creatinine Ratio 15.6 (10-20); Calcium 8.7 mg/dl (8.5-10.1); Creatinine Clr Calc Pharmacy 26.4 ml/min; Est GFR (African American) 55.9 ml/min; Est GFR (Non-African American) 48.2 ml/min; Magnesium 1.9 mg/dl (1.8-2.4); Potassium 4.2 mmol/L (3.5-5.1)
[2021-05-11] MEDS: lisinopril 5 MG TAB PO SCH (21:13)
[2021-05-11] MEDS: ISOSORBIDE MONO EXTENDED REL 30 MG TABCR PO SCH (21:13)
[2021-05-12] MEDS: HEPARIN SODIUM/DEXTROSE 25,000 UNITS/500 ML BAG IV SCH (02:19)
[2021-05-12] MEDS: LEVOTHYROXINE SODIUM 100 MCG TABLET PO SCH (05:48)
--- NOTE | 2021-05-12 07:19 | XRay Report ---
XR chest 1V portable INDICATION: MN ^sob . TECHNIQUE: Single frontal radiograph of the chest was obtained. Comparison: Comparison is made to CT chest 05/11/2031 FINDINGS: Median sternotomy wires and post surgical changes are seen. Diffuse interstitial thickening and emphy sematous changes are noted. The lungs are clear. No evidence of pleural effusion or pneumothorax, eff usions noted on CT are too small to visualize radiographically. Osteopenia is seen. IMPRESSION: Findings compatible with chronic lung disease without evidence of acute abnormality. ACT 112: Negative or not required by law. Electronically signed by: Alberto Villagran M.D. 05/12/2021 7:18 AM
[2021-05-12 07:35] LABS: Hematocrit (blood only) 36.5 % (42-52); Mean Corpuscular Hgb Conc 32.9 g/dL (32-36); Mean Corpuscular Volume 91.3 fL (80-100); Mean Platelet Volume 11.7 fL (7.4-10.4); Platelet Count 114 K/uL (130-400); RDW Coefficient of Variation 14.2 % (11.5-14.5); RDW Standard Deviation 47.2 fL (36.4-46.3)
[2021-05-12 07:55] LABS: Partial Thromboplastin Ratio 1.5; Partial Thromboplastin Time 40.2 Seconds (21.0-31.0)
[2021-05-12 08:05] LABS: BUN Creatinine Ratio 18.7 (10-20); Calcium 8.9 mg/dl (8.5-10.1); Creatinine Clr Calc Pharmacy 31.5 ml/min; Est GFR (Non-African American) 60.4 ml/min; Potassium 4.3 mmol/L (3.5-5.1)
[2021-05-12] MEDS: METOPROLOL TARTRATE 25 MG TAB PO SCH ×2 (08:35→21:20)
[2021-05-12] MEDS: ASPIRIN 81 MG ECTAB PO SCH (08:36)
[2021-05-12] MEDS: CLOPIDOGREL BISULFATE 75 MG TAB PO SCH (08:36)
[2021-05-12] MEDS: GABAPENTIN 100 MG CAP PO SCH ×3 (08:36→21:20)
[2021-05-12] MEDS: ATORVASTATIN 40 MG TAB PO SCH (08:36)
[2021-05-12 15:08] LABS: Partial Thromboplastin Ratio 1.6; Partial Thromboplastin Time 41.1 Seconds (21.0-31.0)
--- NOTE | 2021-05-12 15:10 | Hospitalist Progress Note ---
Date of Service May 12, 2021 Assessment & Plan (1) NSTEMI (non-ST elevated myocardial infarction): Plan: Syncope and collapse prior to admission with subsequent elevation in troponin enzyme. High risk for ACS and sudden cardiac with known cardiac comorbi dities. Currently on medical treatment with heparin for 48 hours, aspirin. Low-dose beta-melvi. Continue home doses of Imdur, lisinopril, simvastatin. Awaiting final cardiology input. However, patient is refusing any intervention. (2) Syncope and collapse: Plan: Patient is cachectic and appears malnourished. Multiple comorbidities and has a history of noncompliance. Poor hygiene and likely poor nutrition. Positive orthostatics on admission concerning for orthostatic hypotension contributing to syncope. Repeat transthoracic echo with a EF less than 15%. Will be cautious with fluids. Repeat orthostatic pressures today. (3) Ischemic cardiomyopathy: Plan: History of ischemic cardiomyopathy with echo in 2019 revealing severely reduced ejection fraction. At that time patient was not interested in further treatments and is currently a DNR/DNI. Patient is euvolemic on exam. (4) Tobacco use: Plan: Contemplative phase-NicoDerm as needed (5) Peripheral vascular disease: Plan: Chronic, stable, continue medical management (6) CAD (coronary artery disease): Plan: Chronic, stable, continue medical management per home regimen (7) HTN (hypertension): Plan: Blood pressure is at goal. Continue current therapy. (8) Malnutrition: Plan: He is roughly the same amount of weight that he was in 2018. Nutrition consult for general assessment. Patient appears malnourished. (9) Hypothyroidism: Plan: He denies having TSH is on the low end but still roughly normal. Continue levothyroxine at home dosage. (10) DVT prophylaxis: Plan: Heparin drip DNR/DNI per my discussion with him on admission Disposition-continue PCU stay pending further cardiology recommendations and PT/OT assessment for safety or to return home. Ideally, he would stay for another 24 to 48 hours for continue medical treatment of NSTEMI. Admission and Anticipated Discharge Date Admission Date: May 11, 2021 Subjective Patient was comfortably this morning. He is awake, alert and oriented. Denies any chest pain at the moment. Denies any dizziness. Denies any palpitations. Rest of the review system is negative. Review of Systems Review of Systems: All systems reviewed & are unremarkable except as noted in HPI & below Physical Exam Physical Exam: General: Awake and alert, chronically ill-appearing gentleman HENT: NCAT, MMM, EOMI Eyes: PERRLA Neck: Supple, normal range of motion CVS: normal rate and rhythm Resp: b/l clear breath tounds Abdomen: Soft, ND/NT, +BS Extremities: No c/c/e Neuro: face symmetric, strength grossly equal, no focal deficit Skin: warm and dry, no rashes/lesions/errythema MSK: normal ROM, no joint swelling/erythema Results & Data Results & Data ([facility]) Vital Signs (Past 12 Hours) Vital Signs Temp Pulse Pulse Resp BP Pulse Ox Pulse Ox 05/12/21 10:28 36.8 C 80 20 115/62 97 05/12/21 10:16 94 05/12/21 07:01 87 05/12/21 03:10 36.5 C 80 19 108/67 94 Pulse Ox Pulse Ox 05/12/21 10:28 05/12/21 10:16 90 87 L 05/12/21 07:01 05/12/21 03:10
--- NOTE | 2021-05-12 15:30 | Electrocardiogram Report ---
Test Reason : Blood Pressure : / mmHG Vent. Rate : 140 BPM Atrial Rate : 136 BPM P-R Int : 000 ms QRS Dur : 146 ms QT Int : 332 ms P-R-T Axes : 000 -88 071 degrees QTc Int : 506 ms Poor data quality, interpretation may be adversely affected Wide QRS tachycardia with frequent Premature ventricular complexes Left axis deviation Non-specific intra-ventricular conduction block Inferior infarct , age undetermined Abnormal ECG When compared with ECG of 11-MAY-2021 06:35, Wide QRS tachycardia has replaced Sinus rhythm Confirmed by Bradley Rodriguez ([id number]) on 05/12/2021 3:29:28 PM Referred By: REFERRED SELF Confirmed By:Bradley Rodriguez
--- NOTE | 2021-05-12 15:39 | Cardiology Progress Note ---
Date of Service May 12, 2021 Assessment & Plan (1) NSTEMI (non-ST elevated myocardial infarction): (2) Malnutrition: (3) Ischemic cardiomyopathy: (4) Syncope and collapse: (5) CAD (coronary artery disease): (6) History of CVA (cerebrovascular accident): (7) Carotid stenosis: (8) History of laryngeal cancer: (9) Peripheral vascular disease: (10) Tobacco use: (11) HTN (hypertension): Plan: Medically complex 85 yo, malnourished presents with possible syncopal event troponin peaked but denies chest pain complex CAD hx declining further medical treatment and intervention in the past given lack of symptoms would hold off repeat cardiac cath at this time repeat echo shows further decline of LV systolic function Okay to DC heparin Currently maximized on medical regimen including metoprolol, Imdur, lisinopril, aspirin, Plavix and atorvastatin Patient declining further testing or intervention. Declining ICD placement after lengthy conversation on risk of sudden cardiac . At this point, he is medically optimized and without further testing i ntervention it would be okay to DC from a cardiac standpoint. Admission and Anticipated Discharge Date Admission Date: May 11, 2021 Subjective Patient seen and examined, chart reviewed. States that he feels well. Denies any cardiac complaints of chest pain, shortness of breath, palpitations, lightheadedness, dizziness or syncope. Telemetry reviewed: Normal sinus rhythm without arrhythmia or significant ectopy Review of Systems Review of Systems: All systems reviewed & are unremarkable except as noted in HPI & below Physical Exam Physical Exam: General: Awake, alert and oriented x 3. No acute distress. HEENT: Normocephalic, atraumatic. Pupils equal, round and reactive to light and accommodation. Extraocular muscles are intact. Anicteric sclera. Moist mucous membranes. Neck: No JVD. No bruit. Cardiovascular: Regular. Positive S-4. Normal S-1 and S-2. No S-3. 3/6 mid to late systolic ejection murmur, greatest at the right sternal border, second intercostal space with radiation to the bilateral carotids. No rubs. Pulmonary: Clear to auscultation bilaterally. No rales, rhonchi, or wheezing. Abdomen: Bowel sounds x 4, soft. No rebound, guarding or tenderness. No organomegaly. Extremities: No clubbing, cyanosis or edema. +2 pedal pulses bilaterally. Skin: Warm and dry. Results & Data ([facility]) Vital Signs (Past 12 Hours) Vital Signs Temp Pulse Pulse Resp BP Pulse Ox Pulse Ox 05/12/21 10:28 36.8 C 80 20 115/62 97 05/12/21 10:16 94 05/12/21 07:01 87 Pulse Ox Pulse Ox 05/12/21 10:28 05/12/21 10:16 90 87 L 05/12/21 07:01
--- NOTE | 2021-05-12 15:45 | Electrocardiogram Report ---
Test Reason : Blood Pressure : / mmHG Vent. Rate : 085 BPM Atrial Rate : 085 BPM P-R Int : 234 ms QRS Dur : 170 ms QT Int : 458 ms P-R-T Axes : 089 -47 103 degrees QTc Int : 545 ms Sinus rhythm with 1st degree A-V block with frequent , and consecutive Premature ventricular complexe s Possible Left atrial enlargement Left axis deviation Left bundle branch block Abnormal ECG When compared with ECG of 11-MAY-2021 19:44, (unconfirmed) Sinus rhythm has replaced Wide QRS tachycardia Vent. rate has decreased BY 55 BPM Confirmed by Bradley Rodriguez ([id number]) on 05/12/2021 3:45:28 PM Referred By: REFERRED SELF Confirmed By:Bradley Rodriguez
--- NOTE | 2021-05-12 15:47 | Electrocardiogram Report ---
Test Reason : Blood Pressure : / mmHG Vent. Rate : 082 BPM Atrial Rate : 082 BPM P-R Int : 238 ms QRS Dur : 168 ms QT Int : 448 ms P-R-T Axes : 075 -64 086 degrees QTc Int : 523 ms Sinus rhythm with 1st degree A-V block with occasional Premature ventricular complexes Left axis deviation Non-specific intra-ventricular conduction block Possible Lateral infarct , age undetermined Inferior infarct , age undetermined Abnormal ECG When compared with ECG of 12-MAY-2021 06:22, (unconfirmed) No significant change was found Confirmed by Bradley Rodriguez ([id number]) on 05/12/2021 3:47:04 PM Referred By: REFERRED SELF Confirmed By:Bradley Rodriguez
[2021-05-12] MEDS ORDERED: MELATONIN 3 MG TAB PO PRN (19:29)
[2021-05-12] MEDS: lisinopril 5 MG TAB PO SCH (21:19)
[2021-05-12] MEDS: ISOSORBIDE MONO EXTENDED REL 30 MG TABCR PO SCH (21:19)
[2021-05-12 23:15] LABS: Partial Thromboplastin Ratio 1.6; Partial Thromboplastin Time 43.3 Seconds (21.0-31.0)
[2021-05-13] MEDS: LEVOTHYROXINE SODIUM 100 MCG TABLET PO SCH (06:18)
[2021-05-13] MEDS: HEPARIN SODIUM/DEXTROSE 25,000 UNITS/500 ML BAG IV SCH (06:20)
[2021-05-13 06:58] LABS: BUN Creatinine Ratio 24.5 (10-20); Calcium 8.5 mg/dl (8.5-10.1); Creatinine Clr Calc Pharmacy 32.6 ml/min; Est GFR (African American) 73.2 ml/min; Est GFR (Non-African American) 63.1 ml/min; Potassium 4.2 mmol/L (3.5-5.1)
[2021-05-13 07:02] LABS: Partial Thromboplastin Time 51.3 Seconds (21.0-31.0)
[2021-05-13 07:14] LABS: Hematocrit (blood only) 32.3 % (42-52); Hemoglobin 10.5 g/dL (14.0-18.0); Mean Corpuscular Hemoglobin 30.3 pg (25-34); Mean Corpuscular Hgb Conc 32.5 g/dL (32-36); Mean Corpuscular Volume 93.4 fL (80-100); Mean Platelet Volume 12.3 fL (7.4-10.4); Platelet Count 121 K/uL (130-400); RDW Coefficient of Variation 14.2 % (11.5-14.5); RDW Standard Deviation 48.1 fL (36.4-46.3); Red Blood Count 3.46 M/uL (4.7-6.1); White Blood Count 5.78 K/uL (4.8-10.8)
[2021-05-13 07:15] LABS: Acanthocytes 1+; Basophils # (auto) 0.02 K/uL (0-0.2); Basophils % (auto) 0.3 %; Eosinophils # (auto) 0.07 K/uL (0-0.5); Eosinophils % (auto) 1.2 %; Giant Platelets 1+; Immature Granulocytes # (auto) 0.01 K/uL (0.00-0.02); Immature Granulocytes % (auto) 0.2 %; Lymphocytes # (auto) 1.19 K/uL (1.2-3.4); Lymphocytes % (auto) 20.6 %; Monocytes # (auto) 0.73 K/uL (0.11-0.59); Monocytes % (auto) 12.6 %; Neutrophils # (auto) 3.76 K/uL (1.4-6.5); Neutrophils % (auto) 65.1 %; Ovalocytes 1+; Platelet Estimate Decreased (Normal)
[2021-05-13] MEDS: CLOPIDOGREL BISULFATE 75 MG TAB PO SCH (08:41)
[2021-05-13] MEDS: ATORVASTATIN 40 MG TAB PO SCH (08:41)
[2021-05-13] MEDS: GABAPENTIN 100 MG CAP PO SCH ×2 (08:41→14:27)
[2021-05-13] MEDS: ASPIRIN 81 MG ECTAB PO SCH (08:41)
[2021-05-13] MEDS: METOPROLOL TARTRATE 25 MG TAB PO SCH (10:12)
--- NOTE | 2021-05-13 14:41 | Discharge Summary ---
Date of Service May 13, 2021 Admission HPI Per Admitting Provider The patient is an 85-year-old man with a significant history of cardiac and peripheral vascular disease status post stroke, who presented to the ER after a syncopal event in his living room at home. The patient reports eating breakfast this morning and denies feeling poorly prior to losing consciousness. At one point he thought he might of tripped on a rug, however, he does feel he blacked out. He reports not hitting his head and has no headache at this time. He is not sure if his witnessed the event and she is not here to question. He woke up on the floor and realized he was on the floor without confusion. He did not lose control of bowel or bladder function. This patient has a history of medical noncompliance with medications as well as ongoing smoking despite laryngeal cancer status post treatment. His last echocardiogram revealed an ejection fraction of 20 to 25% in October 2018. At that time he was counseled on treatment options and his high risk of sudden cardiac . At that time he stated he did not want further tests and no other medications were changed. He apparently has not followed up since that time with a sql ssis developer and has not had a repeat echocardiogram. He denies any weight loss or weight gain. With respect to weight loss, he states he really "just does not know." He does report 2 days of diarrhea, denies headache, and when asked why he continues to have a shallow cough, reports this is new. He denies any sick contacts and reports having 3 Covid vaccination shots. He denies any overt shortness of breath or chest pain. He denies any abdominal pain. He reports not feeling dehydrated. He smokes approximately 1/2 pack of cigarettes a day and denies any alcohol use. Principal Diagnosis NSTEMI Discharge Exam CONSTITUTIONAL: cachectic-appearing, vitals as above, generally NAD, generally disheveled and unkempt, poor personal hygiene. Has old food dripping down center of chest. EYES: Eyes appear very sunken, prosthetic eye on the right with significant drainage, normal conjunctivae, no scleral icterus ENT: external ear and nose normal, oropharynx clear NECK: trachea midline RESPIRATORY: clear to auscultation bilaterally with diminished breath sounds throughout all lung [place], no crackles, rales or wheezes, normal respiratory effort CARDIOVASCULAR: regular rate and rhythm, S1 and 2 heard without murmurs, gallops or rubs, no JVD, no peripheral edema CHEST: inspection of chest was normal GASTROINTESTINAL: soft, nontender, ND, no guarding MUSCULOSKELETAL: strength 5/5 throughout, head is normocephalic and atraumatic, neck supple, normal palpation of chest wall without tenderness SKIN: warm and dry NEUROLOGIC: CN 2-12 grossly intact, no sensory deficit, normal cognition, normal speech, no tremor PSYCHIATRIC: alert cooperative and oriented to person, place and time. Euthymic mood, makes good eye contact, language grossly intact, recent and remote memory grossly intact. Discharge Data Allergies Allergy/AdvReac Type Severity Reaction Status Date / Time Sulfa (Sulfonamide Allergy Unknown HIVES Verified 05/10/21 16:08 Antibiotics) codeine AdvReac Mild MENTAL Verified 05/10/21 16:08 STATUS CHANGE morphine AdvReac Unknown CHANGE IN Verified 05/10/21 16:08 MENTAL STATUS Consultations 05/10/21 17:52 ED Decision to Admit Stat 05/10/21 20:51 Consult Cardiology Routine Ordered Studies 05/10/21 16:02 CT cervical spine wo con Stat 05/10/21 16:03 CT head/brain wo con Stat 05/11/21 00:44 CT angio chest PE protocol Urgent Hospital Course (1) NSTEMI (non-ST elevated myocardial infarction): Syncope and collapse prior to admission with subsequent elevation in troponin enzyme. High risk for ACS and sudden cardiac with known cardiac comorbidities. Cardiology was consulted. Patient was treated with medical management including heparin, aspirin, beta-melvi, lisinopril, Lipitor, Imdur and Plavix Patient refused any intervention. On the day of discharge patient was doing okay. Hemodynamically patient was doing fine. Patient had a two-step pain did not require any oxygen. Patient was stable at home air. Patient was discharged in stable condition (2) Syncope and collapse: Patient is cachectic and appears malnourished. Multiple comorbidities and has a history of noncompliance. Poor hygiene and likely poor nutrition. Positive orthostatics on admission concerning for orthostatic hypotension contributing to syncope. Repeat transthoracic echo with a EF less than 15%. Encouraged to increase p.o. intake. (3) Ischemic cardiomyopathy: History of ischemic cardiomyopathy with echo in 2019 revealing severely reduced ejection fraction. At that time patient was not interested in further treatments and is currently a DNR/DNI. Patient is euvolemic on exam. (4) Tobacco use: Contemplative phase-NicoDerm as needed (5) Peripheral vascular disease: Chronic, stable, continue medical management (6) CAD (coronary artery disease): Chronic, stable, continue medical management per home regimen (7) HTN (hypertension): Blood pressure is at goal. Continue current therapy. (8) Malnutrition: He is roughly the same amount of weight that he was in 2018. Nutrition consult for general assessment. Patient appears malnourished. (9) Hypothyroidism: He denies having TSH is on the low end but still roughly normal. Continue levothyroxine at home dosage. Total Time Total Time Spent Total Time Spent (In Minutes): 35 Discharge Plan Discharge Items Patient Disposition: Home - Self-Care Reason For Visit: SYNCOPE Discharge Diagnosis: NSTEMI Activity: Resume your previous activity Non-emergency contact: Primary Care Provider Call non-emergency contact if: your symptoms worsen Follow-up/Referrals: Lissett Andrews DO [Primary Care Provider] - (Date & Time 05/16/2021 11:10 AM Provider Lissett Andrews DO Department [facility] ) Diet: Heart Healthy Add Attending Provider Instructions: None Pending Studies at Discharge: No Stand-Alone Forms: My [facility] [employer], Smoking Cessation Medications and DC Order Prescriptions: New atorvastatin 40 mg Tablet 80 mg PO QAM Qty: 30 RF: 0 clopidogrel 75 mg Tablet 75 mg PO QAM Qty: 30 RF: 0 metoprolol tartrate 25 mg Tablet 12.5 mg PO BID Qty: 60 RF: 0 Continued isosorbide mononitrate 30 mg Tablet Extended Release 24 Hr 30 mg PO HS RF: 0 simvastatin 40 mg Tablet 40 mg PO HS RF: 0 nitroglycerin [Nitrostat] 0.4 mg Tablet, Sublingual 0.4 mg Sublingual UD RF: 0 lisinopril 5 mg Tablet 5 mg PO HS RF: 0 aspirin 81 mg Tablet,Delayed Release (Dr/Ec) 81 mg PO DAILY RF: 0 gabapentin 100 mg capsule 100 mg PO TID RF: 0 levothyroxine 100 mcg tablet 100 mcg PO DAILY RF: 0 ipratropium bromide 42 mcg (0.06 %) spray,non-aerosol 2 spray INTRANASAL UD RF: 0 Discharge Orders: Discharge Order (Routine); Ordered 05/13/21 Ordered By: Meka Gonzalez Admission Data Admit Date/Time: 05/11/21 15:05 Attending Provider: Meka Gonzalez Admit Provider: Shannon Acharya Primary Care Provider: Lissett Andrews Other Providers: Shannon Acharya ; Edin Crain ; [place],[facility]
== END 2021-05-13 15:48 | disposition home health service (06) | DRG 281 ==
LOC: 2S 15:52 → ED 15:52 → 2S 20:13 → SUATTDRO 05-11 15:05